=== PATIENT | female | born 1995 | race Caucasian/White ===

== ENCOUNTER 2018-12-27 08:49 | Emergency (ER) | payer BC, OTHER ==
--- NOTE | 2018-12-27 10:31 | EDPHYS ---
Physician Documentation [facility] Name: Deb Mclean Age: 23 yrs Sex: Female : 1995 Arrival Date: 12/27/2018 Time: 08:55 Bed 19 Private MD: Dano Villalobos T ED Physician Michael Vivas HPI: 12/27 09:14 This 23 yrs old Female presents to ER via Ambulatory with complaints of Foot jr8 Pain. 09:14 The patient presents with pain. The complaints affect the medial aspect of left foot. jr8 Context: The problem was sustained at school, resulted from the patient falling, a mis-step, the patient can fully bear weight, the patient is able to ambulate. Onset: The symptoms/episode began/occurred acutely, yesterday. Modifying factors: The symptoms are alleviated by nothing. the symptoms are aggravated by weight bearing. Associated signs and symptoms: The patient has no apparent associated signs or symptoms. Severity of symptoms: At their worst the symptoms were mild, in the emergency department the symptoms are unchanged. The patient has not experienced similar symptoms in the past. The patient has not recently seen a physician. 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 Stated that she came down on left foot wrong and felt "crunch" like feeling to MTP of first digit. Pain since then with mild swelling and tenderness . Historical: - Allergies: 09:05 No Known Allergies; ss - Home Meds: 09:05 None [Active]; ss - PMHx: 09:05 ADD/ADHD; ss - PSHx: 09:05 None; ss - Immunization history:: Adult Immunizations up to date. - Social history:: Smoking status: Patient/guardian denies using tobacco. - Ebola Screening: : Patient denies exposure to infectious person Patient denies travel to an Ebola-affected area in the 21 days before illness onset. ROS: 09:14 Constitutional: Negative for fever, chills, and weight loss. jr8 09:14 MS/extremity: Positive for pain, swelling, tenderness, of the medial aspect of left foot. 09:14 All other systems are negative. Exam: 09:14 Constitutional: This is a well developed, well nourished patient who is awake, alert, jr8 and in no acute distress. Cardiovascular: Regular rate and rhythm with a normal S1 and S2. No gallops, murmurs, or rubs. Normal PMI, no JVD. No pulse deficits. Respiratory: Lungs have equal breath sounds bilaterally, clear to auscultation and percussion. No rales, rhonchi or wheezes noted. No increased work of breathing, no retractions or nasal flaring. Skin: Warm, dry with normal turgor. Normal color with no rashes, no lesions, and no evidence of cellulitis. Neuro: Awake and alert, GCS 15, oriented to person, place, time, and situation. Cranial nerves II-XII grossly intact. Motor strength 5/5 in all extremities. Sensory grossly intact. Cerebellar exam normal. Normal gait. 09:14 Musculoskeletal/extremity: Extremities: grossly normal except: noted in the MTP left foot first digit: Patient with moderate to severe hallux valgus. Mild swelling and tenderness to to the MTP joint . Vital Signs: 09:05 BP 126 / 79; Pulse 90; Resp 16; Temp 98.2(O); Pulse Ox 100% on R/A; Weight 63.5 kg; ss Height 5 ft. 3 in. (160.02 cm); Pain 7/10; 10:45 BP 113 / 71; Pulse 85; Resp 16; Pulse Ox 100% ; bp 09:05 Body Mass Index 24.80 (63.50 kg, 160.02 cm) Procedures: 10:27 Splinting: Splint applied to left foot using post op shoe. applied by nurse. Examined jr8 by me, post splint application: neurovascular intact, 2+ distal pulses palpable, brisk capillary refill noted, Patient tolerated well. MDM: 08:58 Patient medically screened. jr8 10:27 Data reviewed: vital signs, nurses notes, radiologic studies, plain films, and as a jr8 result, I will discharge patient. Data interpreted: Pulse oximetry: on room air is 100 %. Interpretation: normal. Test interpretation: by ED physician or midlevel provider: plain radiologic studies, Sesamoid fracture left foot. Counseling: I had a detailed discussion with the patient and/or guardian regarding: the historical points, exam findings, and any diagnostic results supporting the discharge/admit diagnosis, radiology results, the need for outpatient follow up, a sports trainer, to return to the emergency department if symptoms worsen or persist or if there are any questions or concerns that arise at home. 04/04 09:09 Order name: XRAY Foot LEFT 3 View; Complete Time: 10:51 jr8 12/27 10:27 Order name: Post-op shoe; Complete Time: 10:52 jr8 Administered Medications: No medications were administered Disposition: 10:55 Co-signature as Attending Physician, Michael Vivas MD. rn Disposition: 12/27/18 10:30 Discharged to Home. Impression: Unspecified fracture of left foot - Sesamoid fracture . - Condition is Stable. - Discharge Instructions: Foot Pain. - Prescriptions for Ibuprofen 800 mg Oral Tablet - take 1 tablet by ORAL route every 12 hours As needed take with food; 20 tablet. - School release form, Medication Reconciliation Form, Thank You Letter, Antibiotic Education, Prescription Opioid Use form. - Follow up: Donald Carmona DPM; When: 5 - 6 days; Reason: Recheck today's complaints, Continuance of care, Re-evaluation by your physician. - Problem is new. - Symptoms have improved. Signatures: Dispatcher [employer] EDMS Michael Vivas MD MD rn Smirch, Shelby, RN RN Ashu Lopez PA PA jr8 Cal Miles RN RN bp Corrections: (The following items were deleted from the chart) 10:54 10:30 12/27/2018 10:30 Discharged to Home. Impression: Unspecified fracture of left bp foot - Sesamoid fracture . Condition is Stable. Forms are Medication Reconciliation Form, Thank You Letter, Antibiotic Education, Prescription Opioid Use. Follow up: Donald Carmona; When: 5 - 6 days; Reason: Recheck today's complaints, Continuance of care, Re-evaluation by your physician. Problem is new. Symptoms have improved. jr8
--- NOTE | 2018-12-27 10:31 | ER ---
Nurse's Notes [facility] Name: Deb Mclean Age: 23 yrs Sex: Female : 1995 Arrival Date: 12/27/2018 Time: 08:55 Bed 19 Private MD: Dano Villalobos T Diagnosis: Unspecified fracture of left foot-Sesamoid fracture Presentation: 12/27 09:01 Presenting complaint: Patient states: L foot pain after doing a cartwheel last night. ss Pt was ambulatory with steady gait to exam room. Transition of care: patient was not received from another setting of care. Onset of symptoms was November 25, 2018. Risk Assessment: Do you want to hurt yourself or someone else? Patient reports no desire to harm self or others. Initial Sepsis Screen: Does the patient meet any 2 criteria? No. Patient's initial sepsis screen is negative. Does the patient have a suspected source of infection? No. Patient's initial sepsis screen is negative. Care prior to arrival: None. 09:01 Method Of Arrival: Ambulatory ss 09:01 Acuity: HEAVEN 4 ss Triage Assessment: 09:05 General: Appears in no apparent distress. comfortable, Behavior is calm, cooperative, bp appropriate for age. Pain: Complains of pain in medial aspect of left foot. EENT: No deficits noted. Neuro: Level of Consciousness is awake, alert, obeys commands, Oriented to person, place, time, situation, Appropriate for age. Cardiovascular: No deficits noted. Respiratory: Airway is patent Respiratory effort is even, unlabored, Respiratory pattern is regular, symmetrical. GI: No signs and/or symptoms were reported involving the gastrointestinal system. : No signs and/or symptoms were reported regarding the genitourinary system. Derm: No deficits noted. Reports pain. Musculoskeletal: Circulation, motion, and sensation intact. Range of motion: intact in all extremities. Historical: - Allergies: 09:05 No Known Allergies; ss - Home Meds: 09:05 None [Active]; ss - PMHx: 09:05 ADD/ADHD; ss - PSHx: 09:05 None; ss - Immunization history:: Adult Immunizations up to date. - Social history:: Smoking status: Patient/guardian denies using tobacco. - Ebola Screening: : Patient denies exposure to infectious person Patient denies travel to an Ebola-affected area in the 21 days before illness onset. Screenin:12 Abuse screen: Denies threats or abuse. Denies injuries from another. Nutritional bp screening: No deficits noted. Tuberculosis screening: No symptoms or risk factors identified. Fall Risk None identified. Assessment: 09:05 General: SEE TRIAGE NOTE. bp 10:12 Reassessment: XRAY AT B/S. bp 10:52 Reassessment: PT D/C HOME AMBULATORY WITH FAMILY, DX WITH FOOT PAIN. bp Vital Signs: 09:05 BP 126 / 79; Pulse 90; Resp 16; Temp 98.2(O); Pulse Ox 100% on R/A; Weight 63.5 kg; ss Height 5 ft. 3 in. (160.02 cm); Pain 7/10; 10:45 BP 113 / 71; Pulse 85; Resp 16; Pulse Ox 100% ; bp 09:05 Body Mass Index 24.80 (63.50 kg, 160.02 cm) ED Course: 08:55 Patient arrived in ED. mr 08:55 None, None is Private Physician. mr 08:55 Dano Villalobos MD is Private Physician. mr 08:57 Ashu Marks PA is PHCP. jr8 08:58 Michael Vivas MD is Attending Physician. jr8 09:04 Triage completed. ss 09:05 Arm band placed on right wrist. ss 09:30 Cal Miles, CHANEL is Primary Nurse. bp 10:12 Patient has correct armband on for positive identification. Bed in low position. Call bp light in reach. Side rails up X2. 10:29 Donald Carmona DPM is Referral Physician. jr8 10:36 XRAY Foot LEFT 3 View In Process Unspecified. EDMS 10:45 Ortho shoe applied to left foot. bp 10:52 No provider procedures requiring assistance completed. Patient did not have IV access bp during this emergency room visit. Administered Medications: No medications were administered Outcome: 10:30 Discharge ordered by . jr8 10:53 Discharged to home ambulatory, with family. bp 10:53 Condition: stable 10:53 Discharge instructions given to patient, Instructed on discharge instructions, follow up and referral plans. medication usage, Demonstrated understanding of instructions, follow-up care, medications, Prescriptions given X 1. 10:54 Patient left the ED. bp Signatures: Dispatcher [employer] EDMS Mercer Donna mr Misty Ortiz, RN RN ss Ashu Marks PA PA jr8 Cal Miles, RN RN bp
--- NOTE | 2018-12-27 10:47 | RAD REPORT ---
EXAM DESCRIPTION: RAD - Foot Left 3 View - 12/27/2018 10:35 am CLINICAL HISTORY: PAIN COMPARISON: No comparisons FINDINGS: Hallux valgus with metatarsus primus adductus noted. Mild soft tissue swelling is seen inv olving the first metatarsal-phalangeal joint. No acute fracture or subluxation. Tiny plantar calcanea l spur.
== END 2018-12-27 10:54 | disposition home or self-care (01) ==
LOC: ER 08:49
DX: S92.812A Other fracture of left foot, initial encounter for closed fracture (principal); W19.XXXA Unspecified fall, initial encounter; Y93.89 Activity, other specified; Y92.214 College as the place of occurrence of the external cause
CPT/HCPCS: 99283

== ENCOUNTER 2021-04-02 17:06 | Emergency (ER) | payer BC ==
[2021-04-02 19:13] LABS: Urine Blood 3+ (Negative); Urine Glucose Negative (Negative); Urine Protein 1+ (Negative); Urine Specific Gravity 1.025 (1.005-1.030); Urine pH 5.5 (5.0-7.0)
[2021-04-02 19:29] LABS: Urine Specific Gravity/Preg 1.025 (1.005-1.030)
--- NOTE | 2021-04-02 19:59 | RAD REPORT ---
EXAM DESCRIPTION: CT - Stone Protocol - 04/02/2021 7:47 pm CLINICAL HISTORY: Abdominal pain. Right flank pain COMPARISON: None. TECHNIQUE: Computed axial tomography of the abdomen pelvis was obtained without oral or IV contrast. Lack of IV and oral contrast limits evaluation of solid organs, bowel, and vessels. Coronal reformat jeanie images were obtained and reviewed. All CT scans are performed using dose optimization technique as appropriate and may include automated exposure control or mA/KV adjustment according to patient size. FINDINGS: A renal calculus is not seen. An ureteral calculus is not noted. A bladder calculus is not present. The liver, spleen, pancreas and adrenals appear grossly normal There is no evidence of diverticulitis. The appendix appears normal A 5.3 centimeter right ovarian cyst without significant free fluid IMPRESSION: Negative for a genitourinary calculus A 5.3 centimeter right ovarian cyst without significant free fluid
[2021-04-02 20:19] LABS: Absolute Lymphocytes (CBC) 2.5 K/uL (0.7-4.9); Basophils % 0.6 % (0-1.3); Lymphocytes % 12.6 % (15.3-44.8); MPV 9.4 fL (7.6-11.3); RBC Red Blood Cell Count 4.63 M/uL (3.86-4.86)
[2021-04-02] MEDS ORDERED: MORPHINE 4 MG/ML SYR ONE (20:32)
[2021-04-02] MEDS ORDERED: ONDANSETRON 4 MG/2 ML VIAL ONE (20:33)
[2021-04-02] MEDS ORDERED: NA CHLORIDE 0.9% 1,000 ML ONE (20:33)
[2021-04-02 20:48] LABS: ALT/SGPT 36 U/L (12-78); AST/SGOT 23 U/L (15-37); Albumin 4.8 g/dL (3.4-5.0); Alkaline Phosphatase 45 U/L (45-117); BUN Blood Urea Nitrogen 11 mg/dL (7-18); Bicarbonate 26 mmol/L (21-32); Bilirubin Direct 0.3 mg/dL (0-0.2); Bilirubin Total 1.1 mg/dL (0.2-1.0); Glucose Level 90 mg/dL (74-106); Lipase 51 U/L (73-393); Potassium 3.7 mmol/L (3.5-5.1); Protein, Total 8.8 g/dL (6.4-8.2); Sodium Level 136 mmol/L (136-145)
[2021-04-02 21:20] LABS: White Blood Cell Scan OK (OK)
[2021-04-02 21:21] LABS: Blood Morphology Comment NOT SEEN (NOT SEEN); Platelet Estimate ADEQ
[2021-04-02] MEDS ORDERED: CEFTRIAXONE/SWI 1gm 1 GM/10 ML SYR ONE (21:32)
[2021-04-02 23:08] LABS: Urine Bacteria >50 /HPF (<20); Urine Mucus 2+ /HPF (NONE SEEN)
--- NOTE | 2021-04-02 23:28 | EDPHYS ---
Physician Documentation [facility] Name: Deb Mclean Age: 26 yrs Sex: Female : 1995 Arrival Date: 04/02/2021 Time: 17:11 Bed 17 Private MD: ED Physician Javier Espino HPI: 04/02 19:56 This 26 yrs old Female presents to ER via Ambulatory with complaints of Flank mh7 Pain. 19:56 The patient complains of pain in the right flank. The pain does not radiate. Onset: The mh7 symptoms/episode began/occurred this morning, today, at 08:30. Modifying factors: The symptoms are alleviated by nothing. the symptoms are aggravated by movement, palpation/percussion. 19:57 Associated signs and symptoms: Pertinent positives: urinary frequency, nausea, mh7 Pertinent negatives: diarrhea, dizziness, dysuria, fever, headache, hematuria, pain radiating to the lower extremities, vomiting. Severity of pain: At its worst the pain was moderate today, in the emergency department the pain is unchanged. PRACTICING UROLOGIST: 17:51 LMP 03/19/2021 vg1 Historical: - Allergies: 17:51 No Known Allergies; vg1 - Home Meds: 17:51 Control [Active]; vg1 - PMHx: 17:51 ADD/ADHD; vg1 - Immunization history:: Adult Immunizations up to date, Client reports receiving the 1st dose of the Covid vaccine, March 19, 2021. - Social history:: Smoking status: Reported history of juuling and/or vaping. ROS: 19:57 Constitutional: Negative for fever, chills, and weight loss, Eyes: Negative for injury, mh7 pain, redness, and discharge, Neck: Negative for injury, pain, and swelling, Cardiovascular: Negative for chest pain, palpitations, and edema, Respiratory: Negative for shortness of breath, cough, wheezing, and pleuritic chest pain, Abdomen/GI: Negative for abdominal pain, nausea, vomiting, diarrhea, and constipation. 19:57 MS/Extremity: Negative for injury and deformity, Skin: Negative for injury, rash, and discoloration, Neuro: Negative for headache, weakness, numbness, tingling, and seizure, Psych: Negative for depression, anxiety, suicide ideation, homicidal ideation, and hallucinations, Allergy/Immunology: Negative for hives, rash, and allergies, Endocrine: Negative for neck swelling, polydipsia, polyuria, polyphagia, and marked weight changes, Hematologic/Lymphatic: Negative for swollen nodes, abnormal bleeding, and unusual bruising. Exam: 19:57 Constitutional: This is a well developed, well nourished patient who is awake, alert, mh7 and in no acute distress. Head/Face: Normocephalic, atraumatic. Eyes: Pupils equal round and reactive to light, extra-ocular motions intact. Lids and lashes normal. Conjunctiva and sclera are non-icteric and not injected. Cornea within normal limits. Periorbital areas with no swelling, redness, or edema. Neck: Trachea midline, no thyromegaly or masses palpated, and no cervical lymphadenopathy. Supple, full range of motion without nuchal rigidity, or vertebral point tenderness. No Meningismus. Chest/axilla: Normal chest wall appearance and motion. Nontender with no deformity. No lesions are appreciated. Cardiovascular: Regular rate and rhythm with a normal S1 and S2. No gallops, murmurs, or rubs. Normal PMI, no JVD. No pulse deficits. Respiratory: Lungs have equal breath sounds bilaterally, clear to auscultation and percussion. No rales, rhonchi or wheezes noted. No increased work of breathing, no retractions or nasal flaring. Abdomen/GI: Soft, non-tender, with normal bowel sounds. No distension or tympany. No guarding or rebound. No evidence of tenderness throughout. 19:57 Skin: Warm, dry with normal turgor. Normal color with no rashes, no lesions, and no evidence of cellulitis. MS/ Extremity: Pulses equal, no cyanosis. Neurovascular intact. Full, normal range of motion. Neuro: Awake and alert, GCS 15, oriented to person, place, time, and situation. Cranial nerves II-XII grossly intact. Motor strength 5/5 in all extremities. Sensory grossly intact. Cerebellar exam normal. Normal gait. Psych: Awake, alert, with orientation to person, place and time. Behavior, mood, and affect are within normal limits. 19:57 Back: normal spinal alignment noted, CVA tenderness, that is moderate, is noted on the right, muscle spasm, is not present. Vital Signs: 17:49 BP 145 / 91; Pulse 100; Resp 16; Temp 98.8; Pulse Ox 99% ; Weight 81.65 kg; Height 5 vg1 ft. 4 in. (162.56 cm); Pain 8/10; 20:00 BP 132 / 82; Pulse 80; Resp 18; Pulse Ox 98% ; ea 21:00 BP 120 / 80; Pulse 80; Resp 18; Pulse Ox 98% on R/A; ea 23:30 BP 120 / 70; Pulse 80; Resp 18; Pulse Ox 99% ; ea 17:49 Body Mass Index 30.90 (81.65 kg, 162.56 cm) vg1 MDM: 23:26 Differential diagnosis: nephrolithiasis, pyelonephritis, UTI. Data reviewed: vital [facility] signs, nurses notes, lab test result(s), CBC, electrolytes, urinalysis, UPT: negative. Counseling: I had a detailed discussion with the patient and/or guardian regarding: the historical points, exam findings, and any diagnostic results supporting the discharge/admit diagnosis, the presence of at least one elevated blood pressure reading (>120/80) during this emergency department visit, lab results, radiology results, the need for outpatient follow up, to return to the emergency department if symptoms worsen or persist or if there are any questions or concerns that arise at home. Response to treatment: the patient's symptoms have resolved after treatment, the patient's blood pressure is in an acceptable range, mental status has returned to baseline, the patient no longer shows bradycardia, the patient is not short of breath, the patient is not tachycardic, the patient's pain is gone, the patient's temperature has normalized, patient is well hydrated. 23:28 Patient medically screened. [facility] 04/02 19:13 Order name: Urine Dipstick-Ancillary; Complete Time: 19:37 EDMS 04/02 19:15 Order name: Urine --Ancillary (enter results); Complete Time: 19:37 tt3 04/02 19:37 Order name: Basic Metabolic Panel; Complete Time: 21:07 [facility] 04/02 19:37 Order name: CBC with Diff; Complete Time: 21:50 [facility] 04/02 19:37 Order name: Hepatic Function; Complete Time: 21:07 [facility] 04/02 19:37 Order name: Lipase; Complete Time: 21:07 [facility] 04/02 19:37 Order name: CT Stone Protocol; Complete Time: 21:07 [facility] 04/02 21:10 Order name: Urine Culture [facility] 04/02 21:20 Order name: CBC Smear Scan; Complete Time: 21:50 [facility] 04/02 22:34 Order name: Urine Microscopic Only [facility] 04/02 22:35 Order name: Urine Microscopic Only; Complete Time: 23:24 EDIA 04/02 19:37 Order name: IV Saline Lock; Complete Time: 20:07 [facility] 04/02 19:37 Order name: Labs collected and sent; Complete Time: 20:07 [facility] Administered Medications: 20:22 Drug: NS 0.9% 1000 ml Route: IV; Rate: 1000 ml; Site: right antecubital; ea 21:00 Follow up: Response: No adverse reaction; IV Status: Completed infusion; IV Intake: ea 1000ml 20:22 Drug: morphine 4 mg Route: IVP; Site: right antecubital; ea 21:00 Follow up: Response: No adverse reaction ea 20:22 Drug: Zofran (Ondansetron) 4 mg Route: IVP; Site: right antecubital; ea 21:00 Follow up: Response: No adverse reaction ea 21:16 Drug: Rocephin (cefTRIAXone) 1 grams Route: IV; Rate: per protocol; Site: right ea antecubital; 22:20 Follow up: IV Status: Completed infusion ea Disposition Summary: 04/02/21 23:28 Discharge Ordered Location: Home [facility] Problem: new [facility] Symptoms: have improved [facility] Condition: Stable [facility] Diagnosis - Pyelonephritis [facility] Followup: [facility] - With: Private Physician - When: 1 - 2 days - Reason: Worsening of condition, Recheck today's complaints, Continuance of care, Re-evaluation by your physician Discharge Instructions: - Discharge Summary Sheet [facility] - Pyelonephritis, Adult, [id number] [facility] Forms: - Work release form em - Medication Reconciliation Form [facility] - Thank You Letter [facility] - Antibiotic Education [facility] - Prescription Opioid Use [facility] Prescriptions: - Cipro 500 mg Oral Tablet - take 1 tablet by ORAL route every 12 hours for 10 days; 20 tablet; Refills: 0, 7 Product Selection Permitted - Ibuprofen 800 mg Oral Tablet - take 1 tablet by ORAL route every 8 hours As needed take with food; 15 tablet; mh7 Refills: 0, Product Selection Permitted - ondansetron 4 mg Oral tablet,disintegrating - place 1 tablet by TRANSLINGUAL route every 8 hours As needed; 6 tablet; mh7 Refills: 0, Product Selection Permitted Signatures: Dispatcher [employer] Nati Bright, RN Ana Allan ea RN RN vg1 Javier Espino MD MD 7
--- NOTE | 2021-04-02 23:28 | ER ---
Nurse's Notes [facility] Name: Deb Mclean Age: 26 yrs Sex: Female : 1995 Arrival Date: 04/02/2021 Time: 17:11 Bed 17 Private MD: Diagnosis: Pyelonephritis Presentation: 04/02 17:49 Chief complaint: Patient states: "Around 0830 Right side flank pain began and gradually vg1 throughout the day pain was coming down to my lower back." Pt states urine frequency, denies burning or pain upon urination. Pt states feeling nauseous, denies vomiting. Coronavirus screen: Client denies travel out of the [place] in the last 14 days. Ebola Screen: Patient negative for fever greater than or equal to 101.5 degrees Fahrenheit, and additional compatible Ebola Virus Disease symptoms. Initial Sepsis Screen: Does the patient meet any 2 criteria? No. Patient's initial sepsis screen is negative. Does the patient have a suspected source of infection? No. Patient's initial sepsis screen is negative. Risk Assessment: Do you want to hurt yourself or someone else? Patient reports no desire to harm self or others. Onset of symptoms was April 02, 2021. 17:49 Method Of Arrival: Ambulatory vg1 17:49 Acuity: HEAVEN 3 vg1 Triage Assessment: 17:51 General: Appears in no apparent distress. comfortable, Behavior is calm, cooperative. vg1 Pain: Complains of pain in left mid back. [employer]: 17:51 LMP 03/19/2021 vg1 Historical: - Allergies: 17:51 No Known Allergies; vg1 - Home Meds: 17:51 Control [Active]; vg1 - PMHx: 17:51 ADD/ADHD; vg1 - Immunization history:: Adult Immunizations up to date, Client reports receiving the 1st dose of the Covid vaccine, March 19, 2021. - Social history:: Smoking status: Reported history of juuling and/or vaping. Screenin:00 Abuse screen: Denies threats or abuse. Denies injuries from another. Nutritional bp screening: No deficits noted. Tuberculosis screening: No symptoms or risk factors identified. Fall Risk None identified. Assessment: 19:00 General: SEE TRIAGE NOTE. bp 20:59 Reassessment: Patient and/or family updated on plan of care and expected duration. Pain ea level reassessed. Patient is alert, oriented x 3, equal unlabored respirations, skin warm/dry/pink. 23:42 Reassessment: Patient and/or family updated on plan of care and expected duration. Pain ea level reassessed. Patient is alert, oriented x 3, equal unlabored respirations, skin warm/dry/pink. Discharge instruction given to patient verbalized the understanding of instruction. Pt left ED ambulatory tolerating well. Vital Signs: 17:49 BP 145 / 91; Pulse 100; Resp 16; Temp 98.8; Pulse Ox 99% ; Weight 81.65 kg; Height 5 vg1 ft. 4 in. (162.56 cm); Pain 8/10; 20:00 BP 132 / 82; Pulse 80; Resp 18; Pulse Ox 98% ; ea 21:00 BP 120 / 80; Pulse 80; Resp 18; Pulse Ox 98% on R/A; ea 23:30 BP 120 / 70; Pulse 80; Resp 18; Pulse Ox 99% ; ea 17:49 Body Mass Index 30.90 (81.65 kg, 162.56 cm) vg1 ED Course: 17:11 Patient arrived in ED. bp1 17:51 Triage completed. vg1 17:51 Arm band placed on Patient placed in waiting room, Patient notified of wait time. vg1 19:00 Patient has correct armband on for positive identification. Bed in low position. Call bp light in reach. Side rails up X2. 19:01 Cal Miles, CHANEL is Primary Nurse. bp 19:01 Javier Espino MD is Attending Physician. [facility] 19:46 CT Stone Protocol In Process Unspecified. EDMS 20:07 Inserted saline lock: 20 gauge in right antecubital area, using aseptic technique. jb5 Blood collected. 20:07 Basic Metabolic Panel Sent. jb5 20:07 CBC with Diff Sent. jb5 20:07 Hepatic Function Sent. jb5 20:07 Lipase Sent. jb5 20:19 No provider procedures requiring assistance completed. ea 23:44 IV discontinued, intact, bleeding controlled, No redness/swelling at site. Pressure ea dressing applied. Administered Medications: 20:22 Drug: NS 0.9% 1000 ml Route: IV; Rate: 1000 ml; Site: right antecubital; ea 21:00 Follow up: Response: No adverse reaction; IV Status: Completed infusion; IV Intake: ea 1000ml 20:22 Drug: morphine 4 mg Route: IVP; Site: right antecubital; ea 21:00 Follow up: Response: No adverse reaction ea 20:22 Drug: Zofran (Ondansetron) 4 mg Route: IVP; Site: right antecubital; ea 21:00 Follow up: Response: No adverse reaction ea 21:16 Drug: Rocephin (cefTRIAXone) 1 grams Route: IV; Rate: per protocol; Site: right ea antecubital; 22:20 Follow up: IV Status: Completed infusion ea Intake: 21:00 IV: 1000ml; Total: 1000ml. ea Outcome: 23:28 Discharge ordered by MD. aleman 23:44 Discharged to home ambulatory, with family. ea 23:44 Condition: stable 23:44 Discharge instructions given to patient, Instructed on discharge instructions, follow up and referral plans. medication usage, Demonstrated understanding of instructions, follow-up care, medications, Prescriptions given X 3. 23:46 Patient left the ED. ea Signatures: Dispatcher [employer] Jaqueline Massey Elena RN Cal Sepulveda ea, RN RN Ana Nelson RN RN vg1 Pallavi Carias Maurice, MD MD 7
[2021-04-03] VITALS: TEMP 98.8
[2021-04-03 00:29] VITALS: BP 120/70; O2SAT 99
== END 2021-04-02 23:46 | disposition home or self-care (01) ==
LOC: ER 17:06
DX: N12 Tubulo-interstitial nephritis, not specified as acute or chronic (principal)
CPT/HCPCS: 96365; 96361; 87088; 85025; 87086; 80048; 36415; 81025; 80076; 83690; 76377; 74176; 96375; 99284; J0696; J7030; J2405; 81003; 81015

== ENCOUNTER 2021-07-07 09:12 | Emergency (ER) | payer OTHER, BC ==
[2021-07-07] MEDS ORDERED: CYCLOBENZAPRINE 10 MG TAB ONE (10:11)
[2021-07-07] MEDS ORDERED: IBUPROFEN 400 MG TAB ONE (10:12)
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
[2021-07-07 11:49] VITALS: TEMP 99.5; O2SAT 98
[2021-07-07 11:50] VITALS: BP 119/76
== END 2021-07-07 11:31 | disposition home or self-care (01) ==
LOC: ER 09:12
DX: M23.8X2 Other internal derangements of left knee (principal); V49.40XA Driver injured in collision with unspecified motor vehicles in traffic accident, initial encounter
CPT/HCPCS: 99284

== ENCOUNTER 2021-12-06 06:47 | Emergency (ER) | payer BC, OTHER ==
--- OUTSIDE RECORDS SUMMARY | 2021-12-06 06:50 | XMS REPORT | Continuity of Care Document ---
:1995 Author Organization [facility] t Address [address] [place] [address] Care Team Providers Name Role Phone Larry Prakash Primary Care Physician Kasey Santoro Attending Clinician Payers Payer Name Policy Type Policy Number Effective Date Expiration Date S ource Problems Condition Condition Condition Status Onset Resolution Last Treating Co mments Source Name Details Category Date Date Treatment Clinician Date No known No known Disease Unive rs active active ity of problems problems [facility] Allergies, Adverse Reactions, Alerts This patient has no known allergies or adverse reactions. Social History Social Habit Start Date Stop Date Quantity Comments Source History SDOH [facility] o [facility] Alcohol Std [place] [facility] Drinks Branch History SDOH [facility] o f Alcohol Binge [place] [facility] History SDOH University o f Alcohol Comment [place] [facility] Exposure to Not sure [facility] SARS-CoV-2 [place] [facility] (event[facility] Tobacco use and 2021-08-05 2021-08-05 Never used Universit y of exposure 00:00:00 00:00:00 [facility] Branch Alcohol intake 2021-08-05 2021-08-05 Lifetime University of 00:00:00 00:00:00 non-drinker [facility] (finding) [facility] History SDOH 2021-08-05 2021-08-05 1 University o f Alcohol Frequency 00:00:00 00:00:00 [facility] edical Branch Sex Assigned At [birth year] Universit y of 00:00:00 00:00:00 [facility] Smoking Status Start Date Stop Date Source Never smoker [facility] Medications Ordered Filled Start Stop Current Ordering Indication Dosage Frequency Signature Comments Components Source Medication Medication Date Date Medication? Clinician (SIG) Name Name ISOVI 2020-09 Yes Univers FE 1 mg-20 1-08 ity of mcg (24)/75 00:00: [place] mg (4) per 00 Medical tablet Branch BLISOVI 2020-09 Yes Univers FE 1 mg-20 1-08 ity of mcg (24)/75 00:00: [place] mg (4) per 00 Medical tablet Branch ibuprofen 2020-09 Yes Univers 800 mg 0-13 ity of tablet 00:00: [facility] orphenadrin 2020-09 Yes Univer s e 100 mg SR 0-13 ity of tablet 00:00: [address] ibuprofen 2020-09 Yes Univers 800 mg 0-13 ity of tablet 00:00: [address] orphenadrin 2020-09 Yes Univer s e 100 mg SR 0-13 ity of tablet 00:00: [address] Vital Signs Vital Name Observation Time Observation Value Comments Source Systolic blood 2021-08-05 16:23:00 143 mm[Hg] [facility] Diastolic blood 2021-08-05 16:23:00 96 mm[Hg] Unive rs[facility] of [facility] Heart rate 2021-08-05 16:23:00 97 /min [facility] Body height 2021-08-05 16:23:00 162.6 cm [facility] Body weight 2021-08-05 16:23:00 79.833 kg [facility] BMI 2021-08-05 16:23:00 30.21 kg/m2 [facility] Procedures This patient has no known procedures. Encounters Start End Encounter Admission Attending Care Care Encounter Source Date/Time Date/Time Type Type Clinicians Facility Department ID 2021-08-05 2021-08-05 Office ENRIQUE Giullermo [id number] [facility] 10:45:00 11:15:00 Visit [facility] [employer] [id number] it y of [place] [id number] Rolando as CONRAD?BLEA [id number] [address] MEDICAL OFFICE BUILDING Results This patient has no known results.
[2021-12-06 07:21] LABS: Urine Blood 3+ (Negative); Urine Glucose Negative (Negative); Urine Protein Trace (Negative); Urine Specific Gravity 1.025 (1.005-1.030)
[2021-12-06] MEDS ORDERED: NA CHLORIDE 0.9% 1,000 ML ONE (07:52)
[2021-12-06 08:22] LABS: Absolute Lymphocytes (CBC) 1.2 K/uL (0.7-4.9); Hematocrit 50.7 % (36.0-45.0); Lymphocytes % 10.9 % (15.3-44.8); MPV 9.2 fL (7.6-11.3); RBC Red Blood Cell Count 5.23 M/uL (3.86-4.86)
[2021-12-06 08:41] LABS: ALT/SGPT 32 U/L (12-78); AST/SGOT 32 U/L (15-37); Albumin 4.2 g/dL (3.4-5.0); Alkaline Phosphatase 55 U/L (45-117); BUN Blood Urea Nitrogen 4 mg/dL (7-18); Bicarbonate 24 mmol/L (21-32); Bilirubin Direct 0.2 mg/dL (0-0.2); Bilirubin Total 0.7 mg/dL (0.2-1.0); Glucose Level 96 mg/dL (74-106); Lipase 90 U/L (73-393); Potassium 3.6 mmol/L (3.5-5.1); Protein, Total 7.9 g/dL (6.4-8.2); Sodium Level 136 mmol/L (136-145)
--- NOTE | 2021-12-06 09:12 | RAD REPORT ---
EXAM DESCRIPTION: CTAbdomen Pelvis W Contrast - 12/06/2021 8:58 am CLINICAL HISTORY: Abdominal pain. ABD PAIN COMPARISON: [facility] Protocol dated 04/02/2021 TECHNIQUE: Biphasic CT imaging of the abdomen and pelvis was performed with 100 ml non-ionic IV cont rast. All CT scans are performed using dose optimization technique as appropriate and may include automated exposure control or mA/KV adjustment according to patient size. FINDINGS: The lung bases are clear. The liver is diffusely fatty. The spleen, pancreas, adrenal glands and kidneys are within normal limi ts. No bowel obstruction, free air, free fluid or abscess. The appendix is normal. No evidence of signi ficant lymphadenopathy. 4.5 cm right adnexal cyst. No suspicious bony findings. IMPRESSION: 4.5 cm right adnexal cyst. Diffuse fatty liver.
--- NOTE | 2021-12-06 09:41 | EDPHYS ---
Physician Documentation [facility] Name: Deb Mclean Age: 26 yrs Sex: Female : 1995 Arrival Date: 12/06/2021 Time: 06:50 Bed 7 Private MD: ED Physician Deonte Koch HPI: 12/06 07:40 This 26 yrs old Female presents to ER via Ambulatory with complaints of Groin Pain, kdr Pelvic Pain. 07:40 The patient presents with abdominal pain in the lower abdomen, Generalized groin and kdr pelvic pain. Patient states that she feels like she has electric shocks from her perineal area up into her low abdomen and pelvis. This is been ongoing for about 3 to 4 weeks. He has not changed character over that time. But has persisted. Abnormal vaginal discharge. She denies bloody stools or painful urination. Does have loose stools but that is normal for her. Onset: The symptoms/episode began/occurred gradually, 3 week(s) ago. The symptoms radiate to . Associated signs and symptoms: Pertinent positives: Nausea but no vomiting. The symptoms are described as achy, Feels like electric shocks radiating from her perineum up into her low abdomen and pelvis. Modifying factors: The symptoms are alleviated by nothing, the symptoms are aggravated by nothing. Severity of pain: At its worst the pain was mild moderate just prior to arrival, in the emergency department the pain has improved mildly. The patient has experienced similar episodes in the past, multiple times. The patient has not recently seen a physician. 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 - Social history:: Smoking status: Reported history of juuling and/or vaping. Patient uses alcohol, occasionally. ROS: 07:40 Constitutional: Negative for fever, chills, and weight loss, Eyes: Negative for injury, kdr pain, redness, and discharge, ENT: Negative for injury, pain, and discharge, Neck: Negative for injury, pain, and swelling, Cardiovascular: Negative for chest pain, palpitations, and edema, Respiratory: Negative for shortness of breath, cough, wheezing, and pleuritic chest pain, Back: Negative for injury and pain, : Negative for injury, bleeding, discharge, and swelling, MS/Extremity: Negative for injury and deformity, Skin: Negative for injury, rash, and discoloration, Neuro: Negative for headache, weakness, numbness, tingling, and seizure activity. Psych: Negative for depression, anxiety, suicide ideation, homicidal ideation, and hallucinations, Allergy/Immunology: Negative for hives, rash, and allergies, Endocrine: Negative for neck swelling, polydipsia, polyuria, polyphagia, and marked weight changes, Hematologic/Lymphatic: Negative for swollen nodes, abnormal bleeding, and unusual bruising. 07:40 Abdomen/GI: Positive for abdominal pain, nausea, Negative for constipation, abdominal distension, anorexia, dysphagia, hematemesis, black/tarry stool, rectal pain, rectal bleeding, bowel incontinence. Exam: 07:40 Constitutional: This is a well developed, well nourished patient who is awake, alert, kdr and in no acute distress. Head/Face: Normocephalic, atraumatic. Eyes: Pupils equal round and reactive to light, extra-ocular motions intact. Lids and lashes normal. Conjunctiva and sclera are non-icteric and not injected. Cornea within normal limits. Periorbital areas with no swelling, redness, or edema. Neck: Trachea midline, no thyromegaly or masses palpated, and no cervical lymphadenopathy. Supple, full range of motion without nuchal rigidity, or vertebral point tenderness. No Meningismus. Chest/axilla: Normal chest wall appearance and motion. Nontender with no deformity. No lesions are appreciated. Cardiovascular: Regular rate and rhythm with a normal S1 and S2. No gallops, murmurs, or rubs. Normal PMI, no JVD. No pulse deficits. Respiratory: Lungs have equal breath sounds bilaterally, clear to auscultation and percussion. No rales, rhonchi or wheezes noted. No increased work of breathing, no retractions or nasal flaring. Back: No spinal tenderness. No costovertebral tenderness. Full range of motion. Skin: Warm, dry with normal turgor. Normal color with no rashes, no lesions, and no evidence of cellulitis. MS/ Extremity: Pulses equal, no cyanosis. Neurovascular intact. Full, normal range of motion. Neuro: Awake and alert, GCS 15, oriented to person, place, time, and situation. Cranial nerves II-XII grossly intact. Motor strength 5/5 in all extremities. Sensory grossly intact. Cerebellar exam normal. Normal gait. Psych: Awake, alert, with orientation to person, place and time. Behavior, mood, and affect are within normal limits. 07:40 Abdomen/GI: Inspection: abdomen appears normal, Bowel sounds: active, all quadrants, diminished, Palpation: soft, mild abdominal tenderness, in the right lower quadrant, rebound tenderness, is not appreciated, voluntary guarding, is not appreciated, involuntary guarding, is not appreciated. Vital Signs: 07:02 BP 146 / 93; Pulse 102; Resp 16 S; Temp 98.2(O); Pulse Ox 100% on R/A; Weight 77.11 kg lg3 (R); Height 5 ft. 4 in. (162.56 cm) (R); Pain 2/10; 07:55 BP 120 / 85; Pulse 70; Resp 17; Pulse Ox 98% on R/A; jg9 08:14 BP 116 / 85; Pulse Ox 99% on R/A; ap3 09:08 BP 113 / 85; Pulse 79; Pulse Ox 99% on R/A; ap3 07:02 Body Mass Index 29.18 (77.11 kg, 162.56 cm) lg3 MDM: 07:40 Data reviewed: vital signs, nurses notes, lab test result(s), radiologic studies. kdr Counseling: I had a detailed discussion with the patient and/or guardian regarding: the historical points, exam findings, and any diagnostic results supporting the discharge/admit diagnosis, lab results, radiology results, the need for outpatient follow up. 09:40 Patient medically screened. kdr 12/06 07:21 Order name: Urine Dipstick-Ancillary EDMS 12/06 07:23 Order name: Urine --Ancillary (enter results) bd 12/06 07:40 Order name: Basic Metabolic Panel; Complete Time: 09:16 kdr 12/06 07:40 Order name: CBC with Diff; Complete Time: 09:16 kdr 12/06 07:40 Order name: Hepatic Function; Complete Time: 09:16 kdr 12/06 07:40 Order name: Lipase; Complete Time: 09:16 kdr 12/06 07:40 Order name: IV Saline Lock; Complete Time: 07:53 kdr 12/06 07:40 Order name: Labs collected and sent; Complete Time: 07:57 kdr 12/06 07:40 Order name: CT Abd/Pelvis - IV Contrast Only; Complete Time: 09:16 kdr Administered Medications: 07:54 Drug: NS 0.9% 1000 ml Route: IV; Rate: 1 bolus; Site: right antecubital; ap3 09:44 Follow up: IV Status: Completed infusion; IV Intake: 1000ml jg9 09:46 Drug: Bactrim (trimethoprim-sulfamethoxazole) (160 mg-800 mg (DS) 1 tablet Route: PO; jg9 Disposition Summary: 12/06/21 09:40 Discharge Ordered Location: Home kdr Problem: an ongoing problem kdr Symptoms: have improved kdr Condition: Stable kdr Diagnosis - 4.5 cm right adnexal cyst kdr Followup: kdr - With: Private Physician - When: 2 - 3 days - Reason: If symptoms return, Further diagnostic work-up, Recheck today's complaints, Continuance of care, Re-evaluation by your physician Discharge Instructions: - Discharge Summary Sheet kdr - Urinary Tract Infection, Adult, [id number] kdr - Dehydration, Adult, [id number] kdr Forms: - Medication Reconciliation Form kdr - Thank You Letter kdr - Antibiotic Education kdr - Prescription Opioid Use kdr Prescriptions: - Tramadol 50 mg Oral Tablet - take 1 tablet by ORAL route every 8 hours as needed; 12 tablet; Refills: 0, kdr Product Selection Permitted - Bactrim DS 800-160 mg Oral Tablet - take 1 tablet by ORAL route every 12 hours for 3 days; 6 tablet; Refills: 0, kdr Product Selection Permitted Signatures: Dispatcher [employer] EDDeonte Inman MD MD kdr Uzma Núñez RN RN ap3 Petra Pacheco RN RN lg3 Jaqueline Higuera RN RN jg9 Corrections: (The following items were deleted from the chart) 07:05 07:04 Home Meds: Blisovi Fe 10/14 (28) Oral once daily; lg3 lg3
--- NOTE | 2021-12-06 09:41 | ER ---
Nurse's Notes [facility] Name: Deb Mclean Age: 26 yrs Sex: Female : 1995 Arrival Date: 12/06/2021 Time: 06:50 Bed 7 Private MD: Diagnosis: 4.5 cm right adnexal cyst Presentation: 12/06 07:02 Chief complaint: Patient states: sharp/shooting groin pain for a few weeks now. pain lg3 with urination. Coronavirus screen: Client denies travel out of the [place] in the last 14 days. At this time, the client does not indicate any symptoms associated with coronavirus-19. Ebola Screen: No symptoms or risks identified at this time. Initial Sepsis Screen: Does the patient meet any 2 criteria? No. Patient's initial sepsis screen is negative. Does the patient have a suspected source of infection? No. Patient's initial sepsis screen is negative. Risk Assessment: Do you want to hurt yourself or someone else? Patient reports no desire to harm self or others. Onset of symptoms was October 2021. 07:02 Method Of Arrival: Ambulatory lg3 07:02 Acuity: HEAVEN 4 lg3 Triage Assessment: 07:04 General: Appears in no apparent distress. comfortable, Behavior is calm, cooperative. lg3 Pain: Complains of pain in pelvis. EENT: No deficits noted. No signs and/or symptoms were reported regarding the EENT system. Neuro: No deficits noted. Level of Consciousness is awake, alert, obeys commands, Oriented to person, place, time, situation. Cardiovascular: No deficits noted. Denies chest pain, shortness of breath. Respiratory: No deficits noted. Airway is patent Trachea midline Respiratory effort is even, unlabored. GI: Abdomen is flat, non-distended, Reports lower abdominal pain, nausea. : Reports burning with urination, cramping, pain. Derm: No deficits noted. No signs and/or symptoms reported regarding the dermatologic system. Skin is intact, is healthy with good turgor, Skin is dry. Musculoskeletal: No deficits noted. No signs and/or symptoms reported regarding the musculoskeletal system. Circulation, motion, and sensation intact. Capillary refill < 3 seconds, Range of motion: intact in all extremities. 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 - Social history:: Smoking status: Reported history of juuling and/or vaping. Patient uses alcohol, occasionally. Screenin:07 Abuse screen: Denies threats or abuse. Denies injuries from another. Nutritional lg3 screening: No deficits noted. Tuberculosis screening: No symptoms or risk factors identified. Fall Risk None identified. Assessment: 07:54 Reassessment: Patient and/or family updated on plan of care and expected duration. Pain ap3 level reassessed. Patient is alert, oriented x 3, equal unlabored respirations, skin warm/dry/pink. Patient reports her right lower quadrant pain is exacerbated with urination. Vital Signs: 07:02 BP 146 / 93; Pulse 102; Resp 16 S; Temp 98.2(O); Pulse Ox 100% on R/A; Weight 77.11 kg lg3 (R); Height 5 ft. 4 in. (162.56 cm) (R); Pain 2/10; 07:55 BP 120 / 85; Pulse 70; Resp 17; Pulse Ox 98% on R/A; jg9 08:14 BP 116 / 85; Pulse Ox 99% on R/A; ap3 09:08 BP 113 / 85; Pulse 79; Pulse Ox 99% on R/A; ap3 07:02 Body Mass Index 29.18 (77.11 kg, 162.56 cm) lg3 ED Course: 06:50 Patient arrived in ED. wm 07:04 Triage completed. lg3 07:04 Arm band placed on right wrist. lg3 07:09 Deonte Koch MD is Attending Physician. kdr 07:35 Jaqueline Higuera, CHANEL is Primary Nurse. jg9 07:45 Inserted saline lock: 20 gauge in right antecubital area, using aseptic technique. em1 Blood collected. by Etienne Diamond 07:54 Initial lab(s) drawn, by ED staff, sent to lab. em1 08:02 Patient has correct armband on for positive identification. Bed in low position. Call jg9 light in reach. 08:45 No apparent distress. Resting quietly. Appears to be sleeping. jg9 08:58 CT Abd/Pelvis - IV Contrast Only In Process Unspecified. EDMS 09:13 No apparent distress. Awaiting radiology results. Awaiting disposition. jg9 09:51 No provider procedures requiring assistance completed. IV discontinued, intact, ap3 bleeding controlled, No redness/swelling at site. Pressure dressing applied. Administered Medications: 07:54 Drug: NS 0.9% 1000 ml Route: IV; Rate: 1 bolus; Site: right antecubital; ap3 09:44 Follow up: IV Status: Completed infusion; IV Intake: 1000ml jg9 09:46 Drug: Bactrim (trimethoprim-sulfamethoxazole) (160 mg-800 mg (DS) 1 tablet Route: PO; jg9 Intake: 09:44 IV: 1000ml; Total: 1000ml. jg9 Outcome: 09:40 Discharge ordered by . kdr 09:51 Discharged to home ambulatory. ap3 09:51 Condition: good 09:51 Discharge instructions given to patient, Instructed on discharge instructions, follow up and referral plans. medication usage, Demonstrated understanding of instructions, follow-up care, medications, Prescriptions given X 1. 09:52 Patient left the ED. ap3 Signatures: Dispatcher [employer] EDMS Deonte Koch MD MD kdr Martinez, Eric em1 Uzma Núñez RN RN ap3 Petra Pacheco RN RN lg3 Renetta Bennett Jennifer RN RN jg9 Corrections: (The following items were deleted from the chart) 07:05 07:04 Home Meds: Blisovi Fe 10/14 (28) Oral once daily; lg3 lg3 08:48 08:48 No apparent distress. Resting quietly. Appears to be sleeping. jg9 jg9
[2021-12-06] MEDS ORDERED: SMZ./TMP. 800/160 MG TABLET ONE (09:50)
[2021-12-06 09:59] VITALS: TEMP 98.2
[2021-12-06 10:01] VITALS: O2SAT 99
[2021-12-06 10:02] VITALS: BP 113/85
[2021-12-06 11:00] LABS: Urine Specific Gravity/Preg 1.025 (1.005-1.030)
== END 2021-12-06 09:52 | disposition home or self-care (01) ==
LOC: ER 06:47
DX: N83.8 Other noninflammatory disorders of ovary, fallopian tube and broad ligament (principal)
CPT/HCPCS: 96361; 85025; 80048; 36415; 81025; 80076; 81003; 83690; 74177; 96360; 99284; Q9967; J7030

== ENCOUNTER 2022-08-11 09:04 | Emergency (ER) | payer BC ==
--- OUTSIDE RECORDS SUMMARY | 2022-08-11 09:08 | XMS REPORT | Continuity of Care Document ---
:1995 Author Organization [facility] t Address [address] [place] [address] Care Team Providers Name Role Phone Brady Prakash Primary Care Physician MICH WASHINGTON Attending Clinician Unavailable COOPER WORKMAN Attending Clinician Unavailable [id number] Attending Clinician Unavailable Ko Santoro Attending Clinician Payers Payer Name Policy Type Policy Number Effective Date Expiration Date S [place] BCBS 2 [id number] 2022 00:00:00 Problems Condition Condition Condition Status Onset Resolution Last Treating Co mments Source Name Details Category Date Date Treatment Clinician Date No known No known Disease Maximus cueva active active Seybvince problems problems - Externa l Allergies, Adverse Reactions, Alerts This patient has no known allergies or adverse reactions. Social History Social Habit Start Date Stop Date Quantity Comments Source Exposure to Not sure [facility]-CoV-2 [facility] (event) Branch History TRUE naranjo - Alcohol Frequency Externa l History TRUE naranjo - Alcohol Std External Drinks History TRUE naranjo - Alcohol Binge External Alcohol intake 2022-08-08 2022-08-08 Current drinker Maximus Miller - 00:00:00 00:00:00 of alcohol External (finding) Alcohol Comment 2022-07-26 2022-07-26 social Rafaela mitchell - 00:00:00 00:00:00 External Tobacco use and 2021-08-05 2021-08-05 Never used [facility] 00:00:00 00:00:00 [facility] Sex Assigned At [birth year] Rafaela Se ybold - 00:00:00 00:00:00 External Smoking Status Start Date Stop Date Source Never smoked tobacco Rafaela Seyb old - External Medications Ordered Filled Start Stop Current Ordering Indication Dosage Frequency Signature Comments Components Source Medication Medication Date Date Medication? Clinician (SIG) Name Name Bupropion 2021-09 Yes 300mg Take 300 Joel sey HCL XL 300 1-14 mg by Seybold MG OR TB24 08:12: mouth - 06 daily Externa l Escitalopra 2021-09 Yes [id number] 10mg Take 1 Rafaela m Oxalate 1-14 tablet (10 Seyb old 10 MG oral 00:00: mg total) - Tablet 00 by mouth Externa daily l Bupropion 2021-09 Yes 300mg Take 300 Joel sey HCL XL 300 1-01 mg by Seybold MG OR TB24 11:29: mouth - 30 daily Externa l Escitalopra 2021-09 Yes [id number] 5mg Take 1 Rafaela m Oxalate 5 09-25 tablet (5 Sey bold MG oral 00:00: mg total) - Tablet 00 by mouth Externa daily l Propranolol 2021-09 Yes [id number] 10mg Q.[id number] Take 1 Rafaela HCl 10 MG - [id number] tablet (10 Seybold oral Tablet 00:00: 3D mg total) - 00 by mouth 3 Externa times l daily as needed Propranolol 2021-09 Yes [id number] 10mg Q.[id number] Take 1 Rafaela HCl 10 MG - [id number] tablet (10 Seybold oral Tablet 00:00: 3D mg total) - 00 by mouth 3 Externa times l daily as needed Escitalopra 2021-09- No [id number] 5mg Take 1 Rafaela m Oxalate 5 09-25-14 tablet (5 Se ybold MG oral 00:00: 00:00 mg total) - Tablet 00 :00 by mouth Externa daily l Norethin 2020-09 Yes Rafaela Shaquille-Eth 10-02 Seybold Estrad-FE 00:00: - (Blisovi 24 00 Externa Fe) 1-20 l MG-MCG(24) oral Tablet Norethin 2020-09 Yes Rafaela Shaquille-Eth 1-08 Paul Estrad-FE 00:00: - (Blisovi 24 00 Externa Fe) 1-20 l MG-MCG(24) oral Tablet BLISOVI 2020-09 Yes Univers FE 1 mg-20 1-08 ity of mcg (24)/75 00:00: [place] mg (4) per 00 Medical tablet Branch BLISOVI 2020-09 Yes Univers FE 1 mg-20 1-08 ity of mcg (24)/75 00:00: [place] mg (4) per 00 Medical tablet Branch ibuprofen 2020-09 Yes Univers 800 mg 0-13 ity of tablet 00:00: [facility] orphenadrin 2020-09 Yes Univer s e 100 mg SR 0-13 ity of tablet 00:00: [facility] ibuprofen 2020-09 Yes Univers 800 mg 0-13 ity of tablet 00:00: [facility] orphenadrin 2020-09 Yes Univer s e 100 mg SR 0-13 ity of tablet 00:00: [facility] Immunizations Ordered Immunization Filled Immunization Date Status Commen ts Source Name Name Influenza Virus 2022-07-26 Completed Rafaela mitchell Vaccine, age 6 months 00:00:00 - E xternal and up Influenza Virus 2022-07-26 Completed Rafaela mitchell Vaccine, age 6 months 00:00:00 - E xternal and up HPV 4 (Human 2009-05-11 Completed Rafalea naranjo Papillomavirus) 00:00:00 - Externa l Meningococcal 2009-05-11 Completed Rafaela Gutierrez old Vaccine- 00:00:00 - External Conjugate(Menactra) Tdap- (Boostrix, 2009-05-11 Completed Rafaela glover Adacel) 00:00:00 - External Varicella Vaccine 2009-05-11 Dario Miller 00:00:00 - External HPV 4 (Human 2009-05-11 Completed Rafaela naranjo Papillomavirus) 00:00:00 - Externa l Meningococcal 2009-05-11 Completed Rafaela Gutierrez old Vaccine- 00:00:00 - External Conjugate(Menactra) Tdap- (Boostrix, 2009-05-11 Completed Rafaela glover Adacel) 00:00:00 - External Varicella Vaccine 2009-05-11 Completed Rafaela Miller 00:00:00 - External MMR- Measles, Mumps, 2002-02-19 Completed Irma Miller Rubella 00:00:00 - External MMR- Measles, Mumps, 2002-02-19 Completed Irma Miller Rubella 00:00:00 - External DTaP Unspecified 2001-04-10 Completed Rafaela glover 00:00:00 - External IPV- Inactivated 2001-04-10 Completed Rafaela paredesbomarcella Polio Vaccine 00:00:00 - External DTaP Unspecified 2001-04-10 Completed Rafaela glover 00:00:00 - External IPV- Inactivated 2001-04-10 Completed Rafaela paredesbomarcella Polio Vaccine 00:00:00 - External DTaP Unspecified 1998-11-09 Completed Rafaela glover 00:00:00 - External Hepatitis B, 1998-11-09 Completed Rafaela Stauffer ld Adolescent Or 00:00:00 - External Pediatric HIB- Haemophilus 1998-11-09 Completed Rafaela paredesbomarcella Influenzae Type B 00:00:00 - Exter nal IPV- Inactivated 1998-11-09 Completed Rafaela paredesbomarcella Polio Vaccine 00:00:00 - External DTaP Unspecified 1998-11-09 Completed Rafaela glover 00:00:00 - External Hepatitis B, 1998-11-09 Completed Rafaela naranjo Adolescent Or 00:00:00 - External Pediatric HIB- Haemophilus 1998-11-09 Completed Rafaela paredesbomarcella Influenzae Type B 00:00:00 - Exter nal IPV- Inactivated 1998-11-09 Completed Rafaela paredesbomarcella Polio Vaccine 00:00:00 - External MMR- Measles, Mumps, 1998-05-05 Completed Irma Miller Rubella 00:00:00 - External Varicella Vaccine 1998-05-05 Completed Rafaela Miller 00:00:00 - External MMR- Measles, Mumps, 1998-05-05 Completed Irma Miller Rubella 00:00:00 - External Varicella Vaccine 1998-05-05 Completed Rafaela Miller 00:00:00 - External DTaP Unspecified 1995 Completed Rafaela Parks eybold 00:00:00 - External Hepatitis B, 1995 Completed Rafaela Stauffer ld Adolescent Or 00:00:00 - External Pediatric Hib, unspecified 1995 Completed Rafaela S eybold formulation 00:00:00 - External DTaP Unspecified 1995 Completed Rafaela Parks eybold 00:00:00 - External Hepatitis B, 1995 Completed Rafaela Stauffer ld Adolescent Or 00:00:00 - External Pediatric Hib, unspecified 1995 Completed Rafaela Parks eybold formulation 00:00:00 - External DTaP Unspecified 1995 Completed Rafaela Parks eybold 00:00:00 - External Hib, unspecified 1995 Completed Rafaela Parks eybold formulation 00:00:00 - External OPV- Oral Polio 1995 Completed Rafaela Butler ybold Vaccine 00:00:00 - External DTaP Unspecified 1995 Completed Rafaela Parks eybold 00:00:00 - External Hib, unspecified 1995 Completed Rafaela Parks eybold formulation 00:00:00 - External OPV- Oral Polio 1995 Completed Rafaela Butler ybold Vaccine 00:00:00 - External DTaP Unspecified 1995 Completed Rafaela Parks eybold 00:00:00 - External Hib, unspecified 1995 Completed Rafaela Parks eybold formulation 00:00:00 - External OPV- Oral Polio 1995 Completed Rafaela Butler ybold Vaccine 00:00:00 - External DTaP Unspecified 1995 Completed Rafaela S eybold 00:00:00 - External Hib, unspecified 1995 Completed Rafaela S eybold formulation 00:00:00 - External OPV- Oral Polio 1995 Completed Rafaela Butler ybold Vaccine 00:00:00 - External Hepatitis B, 1995 Completed Rafaela Stauffer ld Adolescent Or 00:00:00 - External Pediatric Hepatitis B, 1995 Completed Rafaela Stauffer ld Adolescent Or 00:00:00 - External Pediatric Vital Signs Vital Name Observation Time Observation Value Comments Source Systolic blood 2022-08-08 14:11:00 115 mm[Hg] Rafaela Seybold - pressure External Diastolic blood 2022-08-08 14:11:00 63 mm[Hg] Maximus y Seybold - pressure External Heart rate 2022-08-08 14:11:00 76 /min Rafaela Parks eybold - External Body temperature 2022-08-08 14:11:00 37.11 Sylvia Irma ey Seybold - External Respiratory rate 2022-08-08 14:11:00 13 /min Irma ey Seybold - External Body height 2022-08-08 14:11:00 165.1 cm Rafaela Parks eybold - External Body weight 2022-08-08 14:11:00 61.145 kg Rafaela Parks eybold - External BMI 2022-08-08 14:11:00 22.43 kg/m2 Rafaela Parks eybold - External Oxygen saturation in 2022-08-08 14:11:00 99 /min Rafaela Miller - Arterial blood by External Pulse oximetry Systolic blood 2022-07-26 16:25:00 110 mm[Hg] Rafaela Seybold - pressure External Diastolic blood 2022-07-26 16:25:00 62 mm[Hg] Maximus cueva Seybold - pressure External Heart rate 2022-07-26 16:25:00 94 /min Rafaela Parks eybold - External Body temperature 2022-07-26 16:25:00 36.89 Sylvia Irma paredes Seybold - External Respiratory rate 2022-07-26 16:25:00 14 /min Irma paredes Seybold - External Body height 2022-07-26 16:25:00 165.1 cm Rafaela Parks eybold - External Body weight 2022-07-26 16:25:00 60.328 kg Rafaela Parks eybold - External BMI 2022-07-26 16:25:00 22.13 kg/m2 Rafaela Parks eybold - External Systolic blood 2021-08-05 16:23:00 143 mm[Hg] Univer sity of pressure [facility] Diastolic blood 2021-08-05 16:23:00 96 mm[Hg] Unive rsity of pressure [facility] Heart rate 2021-08-05 16:23:00 97 /min [facility] Body height 2021-08-05 16:23:00 162.6 cm [facility] Body weight 2021-08-05 16:23:00 79.833 kg [facility] BMI 2021-08-05 16:23:00 30.21 kg/m2 [facility] Procedures This patient has no known procedures. Encounters Start End Encounter Admission Attending Care Care Encounter Source Date/Time Date/Time Type Type Clinicians Facility Department ID 2022-08-11 2022-08-11 Outpatient RAFAELA WASHINGTON [id number] Rafaela 00:00:00 00:00:00 MICH lorenzana 2022-08-08 2022-08-08 Outpatient RAFAELA WORKMAN [id number] Rafaela 08:00:00 08:00:00 COOPER lorenzana 2022-07-26 2022-07-26 Outpatient LAB90 RAFAELA PRIETO [id number] Rafaela 12:15:00 12:15:00 Keke lorenzana 2022-07-26 2022-07-26 Outpatient RAFAELA WORKMAN [id number] Rafaela 11:30:00 11:30:00 COOPER lorenzana 2021-08-05 2021-08-05 Office Mima [facility] [id number] [facility] 10:45:00 11:15:00 Visit [facility] [id number] it y of [place] [id number] Rolando as CONRAD?BLEA [id number] [place] [address] MEDICAL OFFICE BUILDING Results This patient has no known results.
[2022-08-11] MEDS ORDERED: ONDANSETRON 4 MG/2 ML VIAL ONE (09:28)
[2022-08-11] MEDS ORDERED: MORPHINE 4 MG/ML SYR ONE (09:28)
[2022-08-11] MEDS ORDERED: NA CHLORIDE 0.9% 1,000 ML ONE (09:28)
[2022-08-11] MEDS ORDERED: FAMOTIDINE 20 MG/2 ML VIAL IV ONE (09:29)
[2022-08-11 09:49] LABS: Albumin 4.2 g/dL (3.4-5.0); Bilirubin Total 1.1 mg/dL (0.2-1.0); Potassium 4.2 mmol/L (3.5-5.1); Protein, Total 7.8 g/dL (6.4-8.2)
[2022-08-11 09:55] LABS: Absolute Lymphocytes (CBC) 1.7 K/uL (0.7-4.9); Lymphocytes % 26.4 % (15.3-44.8); MCV 94.3 fL (80-100); MPV 10.1 fL (7.6-11.3); RBC Red Blood Cell Count 4.56 M/uL (3.86-4.86)
[2022-08-11 10:30] LABS: Urine Blood Negative (Negative); Urine Glucose Negative (Negative); Urine Protein Negative (Negative); Urine pH 8.5 (5.0-7.0)
--- NOTE | 2022-08-11 10:46 | RAD REPORT ---
EXAM DESCRIPTION: CTAbdomen Pelvis W Contrast - 08/11/2022 10:36 am CLINICAL HISTORY: Abdominal pain. abd pain COMPARISON: Abdomen Pelvis W Contrast dated 12/06/2021 TECHNIQUE: Biphasic CT imaging of the abdomen and pelvis was performed with 100 ml non-ionic IV cont rast. All CT scans are performed using dose optimization technique as appropriate and may include automated exposure control or mA/KV adjustment according to patient size. FINDINGS: The lung bases are clear. The liver demonstrates a small 14 mm enhancing lesion in the right lobe anteriorly likely flash filli ng hemangioma. Spleen, pancreas, adrenal glands and kidneys are within normal limits. No bowel obstruction, free air, free fluid or abscess. The appendix is normal. No evidence of signi ficant lymphadenopathy. No suspicious bony findings. IMPRESSION: No acute intra-abdominal or pelvic finding.
--- NOTE | 2022-08-11 10:50 | EDPHYS ---
Physician Documentation [facility] Name: Deb Mclean Age: 27 yrs Sex: Female : 1995 Arrival Date: 08/11/2022 Time: 09:06 Bed 14 Private MD: Ana Maria Albrecht ED Physician Colin Hartley HPI: 08/11 10:48 This 27 yrs old Female presents to ER via Ambulatory with complaints of Abdominal Pain, kb Nausea. 10:48 The patient presents with abdominal pain that is diffuse. Onset: The symptoms/episode kb began/occurred this morning. The symptoms do not radiate. Associated signs and symptoms: Pertinent positives: nausea, Pertinent negatives: diarrhea, fever, vomiting. The symptoms are described as constant. Modifying factors: The symptoms are alleviated by nothing, the symptoms are aggravated by nothing. Severity of pain: At its worst the pain was moderate in the emergency department the pain is unchanged. The patient has not experienced similar symptoms in the past. The patient has not recently seen a physician. Historical: - Allergies: 09:43 No Known Allergies; kc6 - PMHx: 09:11 ruptured ovarian cyst; depression; kr3 09:44 Anxiety; kc6 - Immunization history:: Adult Immunizations up to date. - Social history:: Smoking status: Patient denies any tobacco usage or history of. Patient uses street drugs, marijuana. ROS: 10:48 Constitutional: Negative for fever, chills, and weight loss. kb 10:48 Abdomen/GI: Positive for abdominal pain, nausea. 10:48 All other systems are negative. Exam: 10:48 Constitutional: This is a well developed, well nourished patient who is awake, alert, kb and in no acute distress. Head/Face: Normocephalic, atraumatic. ENT: Moist Mucous membranes Cardiovascular: Regular rate and rhythm with a normal S1 and S2. No gallops, murmurs, or rubs. No pulse deficits. Respiratory: Respirations even and unlabored. No increased work of breathing. Talking in full sentences Skin: Warm, dry with normal turgor. Normal color. MS/ Extremity: Pulses equal, no cyanosis. Neurovascular intact. Full, normal range of motion. Neuro: Awake and alert, GCS 15, oriented to person, place, time, and situation. Moves all extremities. Normal gait. Psych: Awake, alert, with orientation to person, place and time. Behavior, mood, and affect are within normal limits. 10:48 Abdomen/GI: Inspection: abdomen appears normal, Bowel sounds: normal, Palpation: soft, in all quadrants, moderate abdominal tenderness, in all quadrants. Vital Signs: 09:09 BP 134 / 92; Pulse 61; Resp 18; Temp 98.1; Pulse Ox 100% ; Weight 60.78 kg; Height 5 kr3 ft. 5 in. (165.10 cm); Pain 10/10; 09:46 BP 136 / 72; Pulse 51; Resp 18 S; Pulse Ox 100% ; Pain 10/10; kc6 10:47 BP 104 / 69; Pulse 63; Resp 18 S; Pulse Ox 100% on R/A; Pain 0/10; kc6 09:09 Body Mass Index 22.30 (60.78 kg, 165.10 cm) kr3 MDM: 09:07 Patient medically screened. [facility] 10:48 Data reviewed: vital signs, nurses notes. Data interpreted: Pulse oximetry: on room air kb is 100 %. Interpretation: normal. Counseling: I had a detailed discussion with the patient and/or guardian regarding: the historical points, exam findings, and any diagnostic results supporting the discharge/admit diagnosis, lab results, radiology results, the need for outpatient follow up, a family practitioner, to return to the emergency department if symptoms worsen or persist or if there are any questions or concerns that arise at home. 08/11 09:12 Order name: CBC with Diff; Complete Time: 09:59 kb 08/11 09:12 Order name: CMP; Complete Time: 09:54 kb 08/11 09:12 Order name: Lipase; Complete Time: 09:54 kb 08/11 09:12 Order name: CT Abd/Pelvis - IV Contrast Only; Complete Time: 10:47 kb 08/11 10:30 Order name: Urine Dipstick-Ancillary; Complete Time: 10:35 EDMS 08/11 09:12 Order name: IV Saline Lock; Complete Time: 09:26 kb 08/11 09:12 Order name: Labs collected and sent; Complete Time: 09:26 kb 08/11 09:12 Order name: Urine Dipstick-Ancillary (obtain specimen); Complete Time: 10:25 kb 08/11 09:12 Order name: Urine Test (obtain specimen); Complete Time: 10:25 kb Administered Medications: 09:43 Drug: NS 0.9% 1000 ml Route: IV; Rate: 1 bolus; Site: right forearm; kc6 11:08 Follow up: Response: No adverse reaction; IV Status: Completed infusion; IV Intake: kc6 1000ml 09:43 Drug: Pepcid (famotidine) 20 mg Route: IVP; Site: right forearm; kc6 11:08 Follow up: Response: No adverse reaction 6 09:43 Drug: Zofran (Ondansetron) 4 mg Route: IVP; Site: right forearm; kc6 11:09 Follow up: Response: No adverse reaction; Nausea is decreased 6 09:43 Drug: morphine 4 mg Route: IVP; Infused Over: 4 mins; Site: right forearm; kc6 11:09 Follow up: Response: No adverse reaction; Pain is decreased; RASS: Alert and Calm (0) kc6 Disposition Summary: 08/11/22 10:49 Discharge Ordered Location: Home kb Condition: Stable kb Diagnosis - Abdominal pain, Generalized kb Followup: kb - With: Emergency Department - When: As needed - Reason: Worsening of condition Followup: kb - With: Private Physician - When: 2 - 3 days - Reason: Recheck today's complaints, Continuance of care, Re-evaluation by your physician Discharge Instructions: - Discharge Summary Sheet kb - Abdominal Pain, Adult, [id number] kb Forms: - Medication Reconciliation Form kb - Thank You Letter kb - Antibiotic Education kb - Prescription Opioid Use kb - Work release form eb Prescriptions: - Zofran 4 mg Oral Tablet - take 1 tablet by ORAL route every 6 hours As needed; 20 tablet; Refills: 0, kb Product Selection Permitted - dicyclomine 20 mg Oral Tablet - take 1 tablet by ORAL route 4 times per day As needed; 20 tablet; Refills: 0, kb Product Selection Permitted Addendum: 08/13/2022 08:29 Co-signature as Attending Physician, Colin Hartley MD I agree with the assessment and c valdez plan of care. Signatures: Dispatcher [employer] Melissa Ortiz, JOHN-C JOHN-Colin Venegas MD MD cha Hadash, Jennifer, FNP [employer]M EXAMINER 7 Robyn Jaime RN RN kr3 Tucker, Vanessa, RN RN kc6
--- NOTE | 2022-08-11 10:50 | ER ---
Nurse's Notes [facility] Name: Deb Mclean Age: 27 yrs Sex: Female : 1995 Arrival Date: 08/11/2022 Time: 09:06 Bed 14 Private MD: Ana Maria Albrecht Diagnosis: Abdominal pain, Generalized Presentation: 08/11 09:09 Chief complaint: Patient states: woke up about an hour ago with severe abd pain that kr3 has gotten worse since and is now causing vomiting. Coronavirus screen: Vaccine status: Patient reports receiving the 2nd dose of the covid vaccine. Client denies travel out of the [place] in the last 14 days. Ebola Screen: Patient denies travel to an Ebola-affected area in the 21 days before illness onset. Initial Sepsis Screen: Does the patient meet any 2 criteria? No. Patient's initial sepsis screen is negative. Does the patient have a suspected source of infection? Yes: Acute abdominal pain. Risk Assessment: Do you want to hurt yourself or someone else? Patient reports no desire to harm self or others. Onset of symptoms was August 11, 2022. 09:09 Method Of Arrival: Ambulatory kr3 09:09 Acuity: HEAVEN 3 kr3 Historical: - Allergies: 09:43 No Known Allergies; kc6 - PMHx: 09:11 ruptured ovarian cyst; depression; kr3 09:44 Anxiety; kc6 - Immunization history:: Adult Immunizations up to date. - Social history:: Smoking status: Patient denies any tobacco usage or history of. Patient uses street drugs, marijuana. Screenin:50 Abuse screen: Denies threats or abuse. Denies injuries from another. Nutritional kc6 screening: No deficits noted. Tuberculosis screening: No symptoms or risk factors identified. Fall Risk No fall in past 12 months (0 pts). No secondary diagnosis (0 pts). IV access (20 points). Ambulatory Aid- None/Bed Rest/Nurse Assist (0 pts). Gait- Normal/Bed Rest/Wheelchair (0 pts) Mental Status- Oriented to own ability (0 pts). Total Escobar Fall Scale indicates No Risk (0-24 pts). Assessment: 09:47 General: Appears in no apparent distress. uncomfortable, Behavior is calm, cooperative, kc6 appropriate for age. Pain: Complains of pain in epigastric area and umbilical area Pain does not radiate. Pain currently is 10 out of 10 on a pain scale. Quality of pain is described as sharp, Pain began 3 hours ago. Is continuous, Alleviated by nothing. Aggravated by increased activity, repositioning, Noted to be grimacing, guarding, Also complains of nausea. Neuro: Bruno Agitation-Sedation Scale (RASS): 0 - Alert and Calm Level of Consciousness is awake, alert, obeys commands, Oriented to person, place, time, situation, Appropriate for age. Cardiovascular: Heart tones S1 S2 present Capillary refill < 3 seconds. Respiratory: Airway is patent Trachea midline Respiratory effort is even, unlabored, Respiratory pattern is regular, symmetrical, Breath sounds are clear bilaterally. GI: Abdomen is flat, non-distended, Bowel sounds present X 4 quads. Abd is soft X 4 quads Abdomen is tender to palpation in epigastric area and umbilical area Reports nausea, vomiting, Patient currently denies diarrhea. : No signs and/or symptoms were reported regarding the genitourinary system. EENT: No signs and/or symptoms were reported regarding the EENT system. Derm: Skin is intact, Skin is dry, Skin is pale, Skin temperature is warm. Musculoskeletal: No signs and/or symptoms reported regarding the musculoskeletal system. Circulation, motion, and sensation intact. Capillary refill < 3 seconds, Range of motion: intact in all extremities. 10:46 Reassessment: Patient appears in no apparent distress at this time. No changes from kc6 previously documented assessment. Patient and/or family updated on plan of care and expected duration. Pain level reassessed. Patient is alert, oriented x 3, equal unlabored respirations, skin warm/dry/pink. Patient denies pain at this time. Patient states feeling better. Patient states symptoms have improved. Vital Signs: 09:09 BP 134 / 92; Pulse 61; Resp 18; Temp 98.1; Pulse Ox 100% ; Weight 60.78 kg; Height 5 kr3 ft. 5 in. (165.10 cm); Pain 10/10; 09:46 BP 136 / 72; Pulse 51; Resp 18 S; Pulse Ox 100% ; Pain 10/10; kc6 10:47 BP 104 / 69; Pulse 63; Resp 18 S; Pulse Ox 100% on R/A; Pain 0/10; kc6 09:09 Body Mass Index 22.30 (60.78 kg, 165.10 cm) kr3 ED Course: 09:06 Patient arrived in ED. mr 09:07 Ana Maria Albrecht is Private Physician. mr 09:07 Jaqueline Joshi FNP is [facility]. jh7 09:07 Colin Hartley MD is Attending Physician. jh7 09:08 PHCP role handed off by Jaqueline Joshi FNP kb 09:08 Melissa Wild FNP-C is [facility]. kb 09:11 Triage completed. kr3 09:13 Arm band placed on right wrist. kr3 09:43 Vanessa Tucker, RN is Primary Nurse. kc6 10:38 CT Abd/Pelvis - IV Contrast Only In Process Unspecified. EDMS 11:07 Patient has correct armband on for positive identification. Placed in gown. Bed in low kc6 position. Call light in reach. Side rails up X2. Adult w/ patient. 11:07 No provider procedures requiring assistance completed. IV discontinued, intact, kc6 bleeding controlled, No redness/swelling at site. Pressure dressing applied. Administered Medications: 09:43 Drug: NS 0.9% 1000 ml Route: IV; Rate: 1 bolus; Site: right forearm; kc6 11:08 Follow up: Response: No adverse reaction; IV Status: Completed infusion; IV Intake: kc6 1000ml 09:43 Drug: Pepcid (famotidine) 20 mg Route: IVP; Site: right forearm; kc6 11:08 Follow up: Response: No adverse reaction kc6 09:43 Drug: Zofran (Ondansetron) 4 mg Route: IVP; Site: right forearm; kc6 11:09 Follow up: Response: No adverse reaction; Nausea is decreased kc6 09:43 Drug: morphine 4 mg Route: IVP; Infused Over: 4 mins; Site: right forearm; kc6 11:09 Follow up: Response: No adverse reaction; Pain is decreased; RASS: Alert and Calm (0) kc6 Medication: 11:08 VIS not applicable for this client. kc6 Intake: 11:08 IV: 1000ml; Total: 1000ml. kc6 Outcome: 10:49 Discharge ordered by . kb 11:07 Discharged to home ambulatory, with significant other. kc6 11:07 Condition: improved 11:07 Discharge instructions given to patient, significant other, Instructed on discharge instructions, follow up and referral plans. medication usage, Demonstrated understanding of instructions, follow-up care, medications, Prescriptions given X 2. 11:09 Patient left the ED. kc6 Signatures: Dispatcher [employer] EDMS Melissa Wild, STUBBER-C STUBBER-Asael RuslanDonna mr Joshi Jaqueline, STUBBER STUBBER jh7 Robyn Jaime, RN RN kr3 Vanessa Tucker, RN RN kc6
[2022-08-11 11:15] VITALS: TEMP 98.1; O2SAT 100
[2022-08-11 11:18] VITALS: BP 104/69
== END 2022-08-11 11:09 | disposition home or self-care (01) ==
LOC: ER 09:04
DX: R10.84 Generalized abdominal pain (principal); R11.0 Nausea
CPT/HCPCS: 96361; 85025; 36415; 81003; 83690; 80053; 74177; 96375; 96374; 99283; J7030; J2405

== ENCOUNTER 2022-09-02 03:30 | Emergency (ER) | payer BC ==
--- OUTSIDE RECORDS SUMMARY | 2022-09-02 03:34 | XMS REPORT | Continuity of Care Document ---
:1995 Author Organization [facility] t Address [address] [place] [address] Care Team Providers Name Role Phone Brady Prakash Larry Primary Care Physician MICH WASHINGTON Attending Clinician Unavailable COOPER WORKMAN Attending Clinician Unavailable [id number] Attending Clinician Unavailable Ko Santoro Attending Clinician Payers Payer Name Policy Type Policy Number Effective Date Expiration Date [place] BCBS 2 [id number] 2022 00:00:00 Problems Condition Condition Condition Status Onset Resolution Last Treating Co mments Source Name Details Category Date Date Treatment Clinician Date Abdominal Abdominal Disease Active 2021-09 Joel sey discomfort discomfort 2-08 Se ybold 00:00: - 00 Externa l Other Other Disease Active 2021-09 Rafaela constipati constipati 2-08 Se ybold on on 00:00: - 00 Externa l Anxiety Anxiety Disease Active 2021-09 Rafaela and and 2-08 Seybold depression depression 00:00: - 00 Externa l No known No known Disease Kelse y active active Seybold problems problems - Externa l Allergies, Adverse Reactions, Alerts This patient has no known allergies or adverse reactions. Social History Social Habit Start Date Stop Date Quantity Comments Source Exposure to Not sure [facility]-CoV-2 [place] [facility] (event) Branch History SDOH Rafaela Stauffer ld - Alcohol Frequency Externa l History SDOH Rafaela Seybo ld - Alcohol Std External Drinks History SDOH Rafaela Gutierrezo ld - Alcohol Binge External Alcohol intake 2022-09-01 2022-09-01 Current drinker Maximus Miller - 00:00:00 00:00:00 of alcohol External (finding) Tobacco use and 2022-09-01 2022-09-01 Smokeless tobacco Ke clary Seybold - exposure 00:00:00 00:00:00 non-user External Alcohol Comment 2022-07-26 2022-07-26 social Rafaela Butler ybold - 00:00:00 00:00:00 External Sex Ass[birth year] At [birth year] Rafaela Butler ybold - 00:00:00 00:00:00 External Smoking Status Start Date Stop Date Source Never smoked tobacco Rafaela Butleryb old - External Medications Ordered Filled Start Stop Current Ordering Indication Dosage Frequency Signature Comments Components Source Medication Medication Date Date Medication? Clinician (SIG) Name Name Propranolol 2021-09 Yes [id number] 10mg Q.5D Take 1 Rafaela HCl 10 MG 2-08 tablet (10 Seyb old oral Tablet 00:00: mg total) - 00 by mouth 2 Externa times l daily as needed (anxiety) Dicyclomine 2021-09 Yes TAKE 1 Irma ey HCl 20 MG 1-17 TABLET BY Seybo ld oral Tablet 00:00: MOUTH 4 - 00 TIMES A Externa DAY l NEEDED Ondansetron 2021-09 Yes 4mg Q.25D Take 4 mg Rafaela HCl 4 MG 1-17 by mouth Seybold oral Tablet 00:00: every 6 - 00 hours as Externa needed l Bupropion 2021-09 Yes 300mg Take 300 Joel sey HCL XL 300 1-14 mg by Seybold MG OR TB24 08:12: mouth - 06 daily Externa l Bupropion 2021-09 Yes 300mg Take 300 Joel sey HCL XL 300 1-14 mg by Seybold MG OR TB24 08:12: mouth - 06 daily Externa l Escitalopra 2021-09 Yes [id number] 10mg Take 1 Rafaela m Oxalate 1-14 tablet (10 Seyb old 10 MG oral 00:00: mg total) - Tablet 00 by mouth Externa daily l Escitalopra 2021-09 Yes [id number] 10mg Take 1 Rafaela m Oxalate 1-14 tablet (10 Seyb old 10 MG oral 00:00: mg total) - Tablet 00 by mouth Externa daily l Bupropion 2021-09 Yes 300mg Take 300 Joel sey HCL XL 300 - mg by Seybold MG OR TB24 11:29: mouth - 30 daily Externa l Escitalopra 2021-09 Yes [id number] 5mg Take 1 Rafaela m Oxalate 5 09-25 tablet (5 Sey bold MG oral 00:00: mg total) - Tablet 00 by mouth Externa daily l Propranolol 2021-09 Yes [id number] 10mg Q.[id number] Take 1 Rafaela HCl 10 MG 09-25 [id number] tablet (10 Seybold oral Tablet 00:00: 3D mg total) - 00 by mouth 3 Externa times l daily as needed Propranolol 2021-09 Yes [id number] 10mg Q.[id number] Take 1 Rafaela HCl 10 MG 09-25 [id number] tablet (10 Seybold oral Tablet 00:00: 3D mg total) - 00 by mouth 3 Externa times l daily as needed Propranolol 2021-09- No [id number] 10mg Q.[id number] Take 1 Rafaela HCl 10 MG 09-25 12 [id number] tablet (10 Seybold oral Tablet 00:00: 00:00 3D mg total) - 00 :00 by mouth 3 Externa times l daily as needed Escitalopra 2021-09- No [id number] 5mg Take 1 Rafaela m Oxalate 5 09-2514 tablet (5 Se ybold MG oral 00:00: 00:00 mg total) - Tablet 00 :00 by mouth Externa daily l Norethin 2020-09 Yes Rafaela Shaquille-Eth 1-08 Seybold Estrad-FE 00:00: - (Blisovi 24 Externa Fe) 1-20 l MG-MCG(24) oral Tablet BLISOVI 2020-09 Yes Univers FE 1 mg-20 -08 ity of mcg (24)/75 00:00: [place] mg (4) per 00 Medical tablet Branch Norethin 2020-09 Yes Rafaela Shaquille-Eth 1-08 Seybold Estrad-FE 00:00: - (Blisovi 24 Externa Fe) 1-20 l MG-MCG(24) oral Tablet Norethin 2020-09 Yes Rafaela Shaquille-Eth 1-08 Paul Estrad-FE 00:00: - (Blisovi 24 Externa Fe) 1-20 l MG-MCG(24) oral Tablet BLISOVI 24 2020-09 Yes Univers FE 1 mg-20 1-08 ity of mcg (24)/75 00:00: [place] mg (4) per 00 Medical tablet Branch ibuprofen 2020-09 Yes Univers 800 mg 0-13 ity of tablet 00:00: [facility] orphenadrin 2020-09 Yes Univer s e 100 mg SR 0-13 ity of tablet 00:00: [facility] ibuprofen 2020-09 Yes Univers 800 mg 0-13 ity of tablet 00:00: [place] [facility] orphenadrin 2020-09 Yes Univer s e 100 mg SR 0-13 ity of tablet 00:00: [place] [facility] Immunizations Ordered Immunization Filled Immunization Date Status Commen ts Source Name Name Influenza Virus 2022-07-26 Completed Rafaela mitchell Vaccine, age 6 months 00:00:00 - E xternal and up Influenza Virus 2022-07-26 Completed Rafaela mitchell Vaccine, age 6 months 00:00:00 - E xternal and up Influenza Virus 2022-07-26 Completed Rafaela mitchell Vaccine, age 6 months 00:00:00 - E xternal and up Tdap- (Boostrix, 2009-05-11 Completed Rafaela glover Adacel) 00:00:00 - External Varicella Vaccine 2009-05-11 Completed Rafaela Miller 00:00:00 - External HPV 4 (Human 2009-05-11 Completed Rafaela Stauffer ld Papillomavirus) 00:00:00 - Externa l Meningococcal 2009-05-11 Completed Rafaela Gutierrez old Vaccine- 00:00:00 - External Conjugate(Menactra) Tdap- (Boostrix, 2009-05-11 Completed Rafaela glover Adacel) 00:00:00 - External Varicella Vaccine 2009-05-11 Completed Rafaela Miller 00:00:00 - External HPV 4 (Human 2009-05-11 Completed Rafaela Stauffer ld Papillomavirus) 00:00:00 - Externa l Meningococcal 2009-05-11 Completed Rafaela Gutierrez old Vaccine- 00:00:00 - External Conjugate(Menactra) Tdap- (Boostrix, 2009-05-11 Completed Rafaela glover Adacel) 00:00:00 - External Varicella Vaccine 2009-05-11 Completed Rafaela Miller 00:00:00 - External HPV 4 (Human 2009-05-11 Completed Rafaela naranjo Papillomavirus) 00:00:00 - Externa l Meningococcal 2009-05-11 Completed Rafaela Gutierrez old Vaccine- 00:00:00 - External Conjugate(Menactra) MMR- Measles, Mumps, 2002-02-19 Completed Irma Miller Rubella 00:00:00 - External MMR- Measles, Mumps, 2002-02-19 Completed Irma paredes Seybold Rubella 00:00:00 - External MMR- Measles, Mumps, 2002-02-19 Completed Irma Gutierrezold Rubella 00:00:00 - External DTaP Unspecified 2001-04-10 Completed Rafaela glover 00:00:00 - External IPV- Inactivated 2001-04-10 Completed Rafaela paredesbold Polio Vaccine 00:00:00 - External DTaP Unspecified 2001-04-10 Completed Rafaela Parks eybomarcella 00:00:00 - External IPV- Inactivated 2001-04-10 Completed Rafaela Parks eybold Polio Vaccine 00:00:00 - External DTaP Unspecified 2001-04-10 Completed Rafaela paredesbomarcella 00:00:00 - External IPV- Inactivated 2001-04-10 Completed Rafaela paredesbomarcella Polio Vaccine 00:00:00 - External DTaP Unspecified 1998-11-09 Completed Rafaela paredesbomarcella 00:00:00 - External Hepatitis B, 1998-11-09 Completed Rafaela naranjo Adolescent Or 00:00:00 - External Pediatric HIB- Haemophilus 1998-11-09 Completed Rafaela glover Influenzae Type B 00:00:00 - Exter nal IPV- Inactivated 1998-11-09 Completed Rafaela paredesbomarcella Polio Vaccine 00:00:00 - External DTaP Unspecified 1998-11-09 Completed Rafaela glover 00:00:00 - External Hepatitis B, 1998-11-09 Completed Rafaela naranjo Adolescent Or 00:00:00 - External Pediatric HIB- Haemophilus 1998-11-09 Completed Rafaela Parks eybomarcella Influenzae Type B 00:00:00 - Exter nal IPV- Inactivated 1998-11-09 Completed Rafaela Parks eybold Polio Vaccine 00:00:00 - External DTaP Unspecified 1998-11-09 Completed Rafaela Parks eybold 00:00:00 - External Hepatitis B, 1998-11-09 Completed Rafaela naranjo Adolescent Or 00:00:00 - External Pediatric HIB- Haemophilus 1998-11-09 Completed Rafaela paredesbomarcella Influenzae Type B 00:00:00 - Exter nal IPV- Inactivated 1998-11-09 Completed Rafaela Parks eybold Polio Vaccine 00:00:00 - External MMR- Measles, Mumps, 1998-05-05 Completed Irma paredes Seybold Rubella 00:00:00 - External Varicella Vaccine 1998-05-05 Completed Rafaela Seybold 00:00:00 - External MMR- Measles, Mumps, 1998-05-05 Completed Irma paredes Seybold Rubella 00:00:00 - External Varicella Vaccine 1998-05-05 Completed Rafaela Seybold 00:00:00 - External MMR- Measles, Mumps, 1998-05-05 Completed Irma paredes Seybold Rubella 00:00:00 - External Varicella Vaccine 1998-05-05 Completed Rafaela Butlerybold 00:00:00 - External DTaP Unspecified 1995 Completed Rafaela Parks eybold 00:00:00 - External Hepatitis B, 1995 Completed Rafaela naranjo Adolescent Or 00:00:00 - External Pediatric Hib, unspecified 1995 Completed Rafaela Parks eybold formulation 00:00:00 - External DTaP Unspecified 1995 Completed Rafaela Parks eybold 00:00:00 - External Hepatitis B, 1995 Completed Rafaela naranjo Adolescent Or 00:00:00 - External Pediatric Hib, unspecified 1995 Completed Rafaela Parks eybold formulation 00:00:00 - External DTaP Unspecified 1995 Completed Rafaela Parks eybold 00:00:00 - External Hepatitis B, 1995 Completed Rafaela naranjo Adolescent Or 00:00:00 - External Pediatric Hib, [...] External OPV- Oral Polio 1995 Completed Rafaela Se ybold Vaccine 00:00:00 - External DTaP Unspecified 1995 Completed Rafaela Parks eybold 00:00:00 - External Hib, unspecified 1995 Completed Rafaela Parks eybold formulation 00:00:00 - External OPV- Oral Polio 1995 Completed Rafaela Se ybold Vaccine 00:00:00 - External DTaP Unspecified 1995 Completed Rafaela Parks eybold 00:00:00 - External Hib, unspecified 1995 Completed Rafaela Parks eybold formulation 00:00:00 - External OPV- Oral Polio 1995 Completed Rafaela Se ybold Vaccine 00:00:00 - External Hepatitis B, 1995 Completed Rafaela Stauffer ld Adolescent Or 00:00:00 - External Pediatric Hepatitis B, 1995 Completed Rafaela Stauffer ld Adolescent Or 00:00:00 - External Pediatric Hepatitis B, 1995 Completed Rafaela Butlerfaviolao ld Adolescent Or 00:00:00 - External Pediatric Vital Signs Vital Name Observation Time Observation Value Comments Source Systolic blood 2022-08-08 14:11:00 115 mm[Hg] Rafaela Seybold - pressure External Diastolic blood 2022-08-08 14:11:00 63 mm[Hg] Joelse y Seybold - pressure External Heart rate [...] saturation in 2022-08-08 14:11:00 99 /min Rafaela Butlerfaviolavince - Arterial blood by External Pulse oximetry Systolic blood 2022-07-26 16:25:00 110 mm[Hg] Rafaela Seybold - pressure External Diastolic blood 2022-07-26 16:25:00 62 mm[Hg] Joelse y Seybold - pressure External Heart rate 2022-07-26 16:25:00 94 /min Rafaela Parks eybold - External Body temperature 2022-07-26 16:25:00 36.89 Sylvia Irma ey Seybold - External Respiratory rate 2022-07-26 16:25:00 14 /min Irma paredes Seybold - External Body height 2022-07-26 16:25:00 165.1 cm Rafaela Parks eybold - External Body weight 2022-07-26 16:25:00 60.328 kg Rafaela Parks eybold - External BMI 2022-07-26 16:25:00 22.13 kg/m2 Rafaela Parks eybold - External Systolic blood 2021-08-05 16:23:00 143 mm[Hg] Univer sit of pressure [facility] Diastolic blood 2021-08-05 16:23:00 96 mm[Hg] Unive rsity of [facility] Heart rate 2021-08-05 16:23:00 97 /min [facility] Body height 2021-08-05 16:23:00 162.6 cm [facility] Body weight 2021-08-05 16:23:00 79.833 kg [facility] BMI 2021-08-05 16:23:00 30.21 kg/m2 [facility] Procedures This patient has no known procedures. Encounters Start End Encounter Admission Attending Care Care Encounter Source Date/Time Date/Time Type Type Clinicians Facility Department ID 2022-09-29 2022-09-29 Outpatient RAFAELA WASHINGTON [id number] Rafaela 09:00:00 09:00:00 MICH Seybol d 2022-09-01 2022-09-01 Outpatient RAFAELA WASHINGTON [id number] Rafaela 08:00:00 08:00:00 MICH Seybol d 2022-08-25 2022-08-25 Outpatient RAFAELA WASHINGTON [id number] Rafaela 08:15:00 08:15:00 MICH Seybol d 2022-08-11 2022-08-11 Outpatient RAFAELA WASHINGTON [id number] Rafaela 00:00:00 00:00:00 MICH Seybol d 2022-08-08 2022-08-08 Outpatient RAFAELA WORKMAN [id number] Rafaela 08:00:00 08:00:00 COOPER Seybol d 2022-07-26 2022-07-26 Outpatient LAB90 RAFAELA PRIETO [id number] Rafaela 12:15:00 12:15:00 Seybol d 2022-07-26 2022-07-26 Outpatient RAFAELA WORKMAN [id number] Rafaela 11:30:00 11:30:00 COOPER Seybol d 2021-08-05 2021-08-05 Office ENRIQUE Guillermo [id number] [facility] 10:45:00 11:15:00 Visit [facility] [id number] it y of [place] [id number] Rolando as CONRAD?BLEA [id number] Mo rojas BURNS [address] [place] [address] MEDICAL OFFICE BUILDING Results This patient has no known results.
[2022-09-02] MEDS ORDERED: ONDANSETRON 4 MG/2 ML VIAL ONE ×2 (04:14→06:52)
[2022-09-02] MEDS ORDERED: NA CHLORIDE 0.9% 1,000 ML ONE (04:14)
[2022-09-02 04:25] LABS: Urine Blood Trace-intact (Negative); Urine Glucose Negative (Negative); Urine Protein Trace (Negative); Urine Specific Gravity 1.015 (1.005-1.030); Urine pH >=9.0 (5.0-7.0)
[2022-09-02 04:40] LABS: Absolute Lymphocytes (CBC) 1.2 K/uL (0.7-4.9); Hematocrit 41.9 % (36.0-45.0); Lymphocytes % 7.7 % (15.3-44.8); MCV 94.1 fL (80-100); MPV 9.3 fL (7.6-11.3); RBC Red Blood Cell Count 4.45 M/uL (3.86-4.86)
[2022-09-02] MEDS ORDERED: BISACODYL 10 MG RECTAL SUPP ONE (04:40)
[2022-09-02] MEDS ORDERED: LACTULOSE 20 GM/30 ML UCUP ONE (04:40)
[2022-09-02 05:00] LABS: Albumin 4.2 g/dL (3.4-5.0); Bilirubin Total 0.9 mg/dL (0.2-1.0); Potassium 3.2 mmol/L (3.5-5.1); Protein, Total 7.6 g/dL (6.4-8.2)
[2022-09-02 05:02] LABS: Urine Bacteria <20 /HPF (<20); Urine RBC <5 /HPF (None Seen)
--- NOTE | 2022-09-02 07:08 | ER ---
Nurse's Notes [facility] Name: Deb Mclean Age: 27 yrs Sex: Female : 1995 Arrival Date: 09/02/2022 Time: 03:34 Bed 26 Private MD: Diagnosis: Abdominal tenderness;Nausea;Constipation;Hypokalemia Presentation: 09/02 03:40 Chief complaint: Patient states: "I have been constipated for the past few days. Then I tw5 started get to some abdominal pain, with nausea and I cannot keep any water down. This has been happening since 4 PM yesterday. I also cannot have a bowel movement. It feels like there is a rock in my stomach.". Coronavirus screen: Vaccine status: Patient reports receiving the 2nd dose of the covid vaccine. [facility]. Ebola Screen: Patient negative for fever greater than or equal to 101.5 degrees Fahrenheit, and additional compatible Ebola Virus Disease symptoms Patient denies exposure to infectious person. Patient denies travel to an Ebola-affected area in the 21 days before illness onset. Initial Sepsis Screen: Does the patient meet any 2 criteria? No. Patient's initial sepsis screen is negative. Does the patient have a suspected source of infection? Yes: Acute abdominal pain. Risk Assessment: Do you want to hurt yourself or someone else? Patient reports no desire to harm self or others. Onset of symptoms was September 01, 2022 at 16:00. 03:40 Method Of Arrival: Wheelchair tw5 03:40 Acuity: HEAVEN 3 tw5 Triage Assessment: 03:45 General: Appears uncomfortable, Behavior is calm, cooperative, appropriate for age. tw5 Pain: Complains of pain in abdomen Pain currently is 8 out of 10 on a pain scale. GI: Reports constipation, intolerance of fluids, nausea, vomiting. 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 - Social history:: Smoking status: Patient denies any tobacco usage or history of. Patient uses street drugs, marijuana. - Family history:: not pertinent. Screenin:00 Abuse screen: Denies threats or abuse. pf1 04:00 Nutritional screening: No deficits noted. Tuberculosis screening: No symptoms or risk pf1 factors identified. Fall Risk None identified. Assessment: 03:50 General: Appears in no apparent distress. comfortable, well groomed, well developed, pf1 Behavior is calm, cooperative, appropriate for age, quiet. 03:50 Pain: Complains of pain in left upper quadrant and right upper quadrant and left lower pf1 quadrant and right lower quadrant and abdomen Quality of pain is described as crampy, Pain began Patient C/O intermittent generalized abdominal pain of 4 days with constipation. Patient stated LBM was 2 hours ago with small hard stool. Neuro: No deficits noted. Level of Consciousness is awake, alert, obeys commands, Oriented to person, place, time, situation. Cardiovascular: No deficits noted. Respiratory: No deficits noted. Airway is patent Breath sounds are clear bilaterally. GI: Bowel sounds present X 4 quads. Abd is soft Abdomen is tender to palpation X 4 quads. Reports constipation, cramping. : No deficits noted. EENT: No deficits noted. Derm: No deficits noted. 06:30 Reassessment: Patient appears in no apparent distress at this time. Patient is alert, pf1 oriented x 3, equal unlabored respirations, skin warm/dry/pink. Patient states symptoms have improved. Patient stated had 2 large BM since medication has been given in ER and has vomited x 2 since visit in ER.. 06:30 General: Appears in no apparent distress. comfortable, well groomed, well developed, pf1 Behavior is calm, cooperative, appropriate for age, quiet. Pain: Complains of pain in left upper quadrant and right upper quadrant and left lower quadrant and right lower quadrant and abdomen Pain currently is 3 out of 10 on a pain scale. Quality of pain is described as crampy. GI: Reports constipation, cramping, nausea, vomiting. 07:08 General: Patient ambulated with steady gait to restroom. pf1 Vital Signs: 03:40 BP 129 / 73; Pulse 66; Resp 18; Temp 97.9; Pulse Ox 100% on R/A; Weight 62.14 kg; tw5 Height 5 ft. 5 in. (165.10 cm); Pain 8/10; 04:30 BP 117 / 68; Pulse 64; Resp 18; Temp 98; Pulse Ox 100% ; Pain 3/10; pf1 05:15 BP 134 / 83; Pulse 55; Resp 18; Pulse Ox 100% ; Pain 3/10; pf1 05:45 BP 147 / 94; Pulse 56; Resp 18; Pulse Ox 100% ; Pain 3/10; pf1 07:00 BP 105 / 78; Pulse 58; Resp 18; Temp 98.2; Pulse Ox 100% ; Pain 3/10; pf1 07:11 BP 105 / 78; Pulse 55; Resp 18; Temp 98.2; Pulse Ox 100% ; Pain 3/10; pf1 03:40 Body Mass Index 22.80 (62.14 kg, 165.10 cm) tw5 ED Course: 03:34 Patient arrived in ED. jj6 03:42 Triage completed. tw5 03:45 Arm band placed on. tw5 03:46 Colin Hartley MD is Attending Physician. annita 04:08 Arlen barakat, CHANEL is Primary Nurse. pf1 04:20 Inserted saline lock: 20 gauge in right antecubital area, using aseptic technique. pf1 Blood collected. 04:32 Urine Microscopic Only Sent. rv1 05:04 Patient has correct armband on for positive identification. Placed in gown. Bed in low pf1 position. Call light in reach. Warm blanket given. Pillow given. 05:04 No provider procedures requiring assistance completed. pf1 06:21 CT Abd/Pelvis - PO and IV Contrast In Process Unspecified. EDMS 07:07 Adrián Barr MD is Referral Physician. annita 07:09 Referral Physician role handed off by Adrián Barr MD annita 07:09 Jigar Peterson MD is Referral Physician. annita 07:12 IV discontinued, intact, bleeding controlled, No redness/swelling at site. Pressure pf1 dressing applied. Administered Medications: 04:20 Drug: NS 0.9% 1000 ml Route: IV; Rate: 1 bolus; Site: right antecubital; pf1 05:07 Follow up: Response: No adverse reaction pf1 05:30 Follow up: IV Status: Completed infusion; IV Intake: 1000ml pf1 04:20 Drug: Zofran (Ondansetron) 4 mg Route: IVP; Site: right antecubital; pf1 05:07 Follow up: Response: Nausea is decreased pf1 04:45 Drug: Lactulose 30 grams Volume: 45 ml; Route: PO; pf1 05:06 Follow up: Response: No adverse reaction pf1 04:45 Drug: Dulcolax (bisacodyl) Suppository 10 mg Route: RI; pf1 05:05 Follow up: Response: No adverse reaction pf1 06:54 Drug: Zofran (Ondansetron) 4 mg Route: IVP; Site: right antecubital; pf1 07:02 Follow up: Response: No adverse reaction; Nausea is decreased pf1 Medication: 07:24 VIS not applicable for this client. pf1 Intake: 05:30 IV: 1000ml; Total: 1000ml. pf1 Outcome: 07:07 Discharge ordered by MD. ariza 07:23 Discharged to home ambulatory, with family. pf1 07:23 Condition: improved 07:23 Discharge instructions given to patient, Instructed on discharge instructions, follow up and referral plans. medication usage, Demonstrated understanding of instructions, follow-up care, medications, Prescriptions given X 3. 07:24 Patient left the ED. pf1 Signatures: Dispatcher [employer] EDGA Colin Hartley MD MD cha Wood, Tiffany tw5 Jaqueline Iniguez6 Arlen barakat RN RN pf1 Louisa Perry rv1
--- NOTE | 2022-09-02 07:09 | EDPHYS ---
Physician Documentation [facility] Name: Deb Mclean Age: 27 yrs Sex: Female : 1995 Arrival Date: 09/02/2022 Time: 03:34 Bed 26 Private MD: JANETTE Physician Colin Hartley HPI: 09/02 04:46 This 27 yrs old Female presents to ER via Wheelchair with complaints of annita Abdominal Pain, Nausea. 04:46 The patient presents to the emergency department with nausea, abdominal pain, of the annita right lower quadrant and left lower quadrant. Onset: The symptoms/episode began/occurred 5 day(s) ago. Possible causes: unknown. The symptoms are aggravated by nothing. The symptoms are alleviated by remaining still. Associated signs and symptoms: The patient has no apparent associated signs or symptoms. Severity of symptoms: At their worst the symptoms were mild moderate in the emergency department the symptoms are unchanged. The patient has experienced similar episodes in the past. 04:50 The patient presents with abdominal pain in the lower abdomen. Modifying factors: The annita symptoms are alleviated by remaining still, the symptoms are aggravated by movement. 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 - Social history:: Smoking status: Patient denies any tobacco usage or history of. Patient uses street drugs, marijuana. - Family history:: not pertinent. ROS: 04:47 Constitutional: Negative for fever, chills, and weight loss, Eyes: Negative for injury, annita pain, redness, and discharge, ENT: Negative for injury, pain, and discharge, Neck: Negative for injury, pain, and swelling, Cardiovascular: Negative for chest pain, palpitations, and edema, Respiratory: Negative for shortness of breath, cough, wheezing, and pleuritic chest pain, Back: Negative for injury and pain, : Negative for injury, bleeding, discharge, and swelling, MS/Extremity: Negative for injury and deformity, Skin: Negative for injury, rash, and discoloration, Neuro: Negative for headache, weakness, numbness, tingling, and seizure, Psych: Negative for depression, anxiety, suicide ideation, homicidal ideation, and hallucinations, Allergy/Immunology: Negative for hives, rash, and allergies, Endocrine: Negative for neck swelling, polydipsia, polyuria, polyphagia, and marked weight changes, Hematologic/Lymphatic: Negative for swollen nodes, abnormal bleeding, and unusual bruising. 04:47 Abdomen/GI: Positive for abdominal pain, abdominal cramps, of the right upper quadrant, left upper quadrant, right lower quadrant and left lower quadrant. 04:47 : Positive for 04:50 Abdomen/GI: Positive for abdominal pain, abdominal cramps, of the right lower quadrant annita and left lower quadrant. Exam: 04:50 Constitutional: This is a well developed, well nourished patient who is awake, alert, annita and in no acute distress. Head/Face: Normocephalic, atraumatic. Eyes: Pupils equal round and reactive to light, extra-ocular motions intact. Lids and lashes normal. Conjunctiva and sclera are non-icteric and not injected. Cornea within normal limits. Periorbital areas with no swelling, redness, or edema. ENT: Nares patent. No nasal discharge, no septal abnormalities noted. Tympanic membranes are normal and external auditory canals are clear. Oropharynx with no redness, swelling, or masses, exudates, or evidence of obstruction, uvula midline. Mucous membranes moist. Neck: Trachea midline, no thyromegaly or masses palpated, and no cervical lymphadenopathy. Supple, full range of motion without nuchal rigidity, or vertebral point tenderness. No Meningismus. Chest/axilla: Normal chest wall appearance and motion. Nontender with no deformity. No lesions are appreciated. Cardiovascular: Regular rate and rhythm with a normal S1 and S2. No gallops, murmurs, or rubs. Normal PMI, no JVD. No pulse deficits. Respiratory: Lungs have equal breath sounds bilaterally, clear to auscultation and percussion. No rales, rhonchi or wheezes noted. No increased work of breathing, no retractions or nasal flaring. Back: No spinal tenderness. No costovertebral tenderness. Full range of motion. Female : Normal external genitalia. Skin: Warm, dry with normal turgor. Normal color with no rashes, no lesions, and no evidence of cellulitis. MS/ Extremity: Pulses equal, no cyanosis. Neurovascular intact. Full, normal range of motion. Neuro: Awake and alert, GCS 15, oriented to person, place, time, and situation. Cranial nerves II-XII grossly intact. Motor strength 5/5 in all extremities. Sensory grossly intact. Cerebellar exam normal. Normal gait. Psych: Awake, alert, with orientation to person, place and time. Behavior, mood, and affect are within normal limits. 04:50 Abdomen/GI: Inspection: abdomen appears normal, Bowel sounds: normal, Palpation: moderate abdominal tenderness, in the right lower quadrant and left lower quadrant, Liver: is firm, Hernia: not appreciated. Vital Signs: 03:40 BP 129 / 73; Pulse 66; Resp 18; Temp 97.9; Pulse Ox 100% on R/A; Weight 62.14 kg; tw5 Height 5 ft. 5 in. (165.10 cm); Pain 8/10; 04:30 BP 117 / 68; Pulse 64; Resp 18; Temp 98; Pulse Ox 100% ; Pain 3/10; pf1 05:15 BP 134 / 83; Pulse 55; Resp 18; Pulse Ox 100% ; Pain 3/10; pf1 05:45 BP 147 / 94; Pulse 56; Resp 18; Pulse Ox 100% ; Pain 3/10; pf1 07:00 BP 105 / 78; Pulse 58; Resp 18; Temp 98.2; Pulse Ox 100% ; Pain 3/10; pf1 07:11 BP 105 / 78; Pulse 55; Resp 18; Temp 98.2; Pulse Ox 100% ; Pain 3/10; pf1 03:40 Body Mass Index 22.80 (62.14 kg, 165.10 cm) tw5 MDM: 03:46 Patient medically screened. [facility] 07:08 Differential diagnosis: Nonspecific abd pain, cholecystitis, pancreatitis, annita appendicitis, diverticulitis, viral gastroenteritis, gastroenteritis, Cholelithiasis, gastroesophageal reflux disease. Data reviewed: vital signs, nurses notes, lab test result(s), radiologic studies, CT scan. Data interpreted: media monitor: rate is 58 beats/min, rhythm is regular, Pulse oximetry: on room air is 100 %. Test interpretation: by ED physician or midlevel provider:. 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 09/02 03:46 Order name: CBC with Diff; Complete Time: 04:46 [facility] 09/02 03:46 Order name: CMP; Complete Time: 05:35 [facility] 09/02 03:46 Order name: Lipase; Complete Time: 05:35 [facility] 09/02 03:46 Order name: Urine Microscopic Only; Complete Time: 05:35 [facility] 09/02 04:25 Order name: Urine Dipstick-Ancillary; Complete Time: 04:26 [facility] 09/02 03:46 Order name: IV Saline Lock; Complete Time: 04:25 [facility] 09/02 03:46 Order name: Labs collected and sent; Complete Time: 04:36 [facility] 09/02 04:28 Order name: CT Abd/Pelvis - PO and IV Contrast [facility] 09/02 03:46 Order name: Urine Dipstick-Ancillary (obtain specimen); Complete Time: 04:26 [facility] 09/02 03:46 Order name: Urine Test (obtain specimen); Complete Time: 04:26 [facility] Administered Medications: 04:20 Drug: NS 0.9% 1000 ml Route: IV; Rate: 1 bolus; Site: right antecubital; pf1 05:07 Follow up: Response: No adverse reaction pf1 05:30 Follow up: IV Status: Completed infusion; IV Intake: 1000ml pf1 04:20 Drug: Zofran (Ondansetron) 4 mg Route: IVP; Site: right antecubital; pf1 05:07 Follow up: Response: Nausea is decreased pf1 04:45 Drug: Lactulose 30 grams Volume: 45 ml; Route: PO; pf1 05:06 Follow up: Response: No adverse reaction pf1 04:45 Drug: Dulcolax (bisacodyl) Suppository 10 mg Route: NE; pf1 05:05 Follow up: Response: No adverse reaction pf1 06:54 Drug: Zofran (Ondansetron) 4 mg Route: IVP; Site: right antecubital; pf1 07:02 Follow up: Response: No adverse reaction; Nausea is decreased pf1 Disposition Summary: 09/02/22 07:07 Discharge Ordered Location: Home annita Problem: new annita Symptoms: have improved annita Condition: Stable annita Diagnosis - Abdominal tenderness annita - Nausea annita - Constipation annita - Hypokalemia annita Followup: annita - With: Private Physician - When: 2 - 3 days - Reason: Recheck today's complaints, Continuance of care, Re-evaluation by your physician Followup: annita - With: - When: 2 - 3 days - Reason: Recheck today's complaints, Continuance of care, Re-evaluation by your physician Followup: annita - With: Jigar Peterson MD - When: 2 - 3 days - Reason: Recheck today's complaints, Re-evaluation by your physician Discharge Instructions: - Discharge Summary Sheet annita - Abdominal Pain, Adult annita - Constipation, Adult annita - Nausea and Vomiting, Adult annita - Constipation, Adult, [id number] annita - Potassium Content of Foods annita - Abdominal Pain, Adult, [id number] annita - Nausea, Adult, [id number] annita - Hypokalemia [facility] Forms: - Medication Reconciliation Form annita - Thank You Letter annita - Antibiotic Education annita - Prescription Opioid Use [facility] Prescriptions: - Zofran 4 mg Oral Tablet - take 1 tablet by ORAL route every 12 hours As needed; 20 tablet; Refills: 0, [facility] Product Selection Permitted - Lactulose 10 gram/15 mL Oral Solution - take 30 milliliters by ORAL route once daily; 300 milliliter; Refills: 0, [facility] Product Selection Permitted - dicyclomine 20 mg Oral Tablet - take 1 tablet by ORAL route 4 times per day; 28 tablet; Refills: 0, Product [facility] Selection Permitted Signatures: Dispatcher [employer] Colin Schmidt MD MD cha Wood, Tiffany tw5 Arlen barakat RN RN pf1
[2022-09-02 08:17] VITALS: O2SAT 100
[2022-09-02 08:23] VITALS: BP 105/78; TEMP 98.2
--- NOTE | 2022-09-02 15:21 | RAD REPORT ---
EXAM DESCRIPTION: Abdominal pain, acute, nonlocalized COMPARISON: 08/11/2022. 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 FINDINGS: Lower lungs are clear. Abdomen: There is a small focus of enhancement in the anterior right lobe of the liver measuring 1.4 cm. This likely represents an FNH or a flash filling hemangioma. There is no biliary dilatation. Gall bladder is normal in appearance. The pancreas and spleen are normal in appearance. The adrenal glands and kidneys are unremarkable. Abdominal aorta is normal in course and caliber without aneurysm. There is no free air. There is no r etroperitoneal adenopathy. Pelvis: There is no bowel obstruction. Urinary bladder is unremarkable. There is small amount of free pelvic fluid. Uterus is normal in size. Appendix is normal. Skeleton: There are no acute osseous findings. No suspicious bony lesions. IMPRESSION: No definite acute inflammatory process. Electronically signed by: Harlan Benjamin MD 09/02/2022 6:59 AM RECREATION WORKER Due to temporary technical issues with the PACS/Fluency reporting system, reports are being signed by the in house radiologists without review as a courtesy to insure prompt reporting. The interpreting radiologist is fully responsible for the content of the report.
== END 2022-09-02 07:24 | disposition home or self-care (01) ==
LOC: ER 03:30
DX: K59.00 Constipation, unspecified (principal); E87.6 Hypokalemia; R11.0 Nausea
CPT/HCPCS: 96361; 85025; 36415; 83690; 80053; 74177; 96374; 99284; Q9967; J7030; J2405 ×2; 81003; 81015